=== PATIENT | female | born 1945 | race Caucasian/White ===

== ENCOUNTER 2019-08-21 01:55 | Day surgery (SDC) | payer MEDICARE, SELFPAY ==
[2019-08-12 15:07] VITALS: BMI 20.8
[2019-08-21] MEDS: LACTATED RINGERS 1,000 ML 150 ML IV CONT (08:05)
[2019-08-21 08:15] VITALS: BP 136/41; PULSE 66; RESP 16; TEMP 36.8; O2SAT 99
--- NOTE | 2019-08-21 08:27 | WPDANESEPPF ---
Anes - Initial Pre Proc Eval Procedure: Operation Date: 08/21/19 09:00 Proposed Procedures p Esophagogastroduodenoscopy - Jesus Doherty MD Date/Time: 08/21/19 08:27 Surgeon: Jesus Doherty MD Pre Op Diagnosis: GERD Patient Data Age: 74 Gender: F Height: 1.63 m Weight: 55.5 kg Last Vital Signs Temp 36.8 C 08/21/19 08:15 Pulse 66 08/21/19 08:15 Resp 16 08/21/19 08:15 BP 136/41 L 08/21/19 08:15 Pulse Ox 99 08/21/19 08:15 Allergies Allergy/AdvReac Type Severity Reaction Status Date / Time Penicillins Allergy Unknown Unknown Verified 08/21/19 08:02 Home Medications Medication Instructions Recorded Confirmed Type simvastatin 40 mg tablet 40 mg PO DAILY #90 tablet 06/17/19 08/21/19 Rx alprazolam 0.5 mg tablet 0.5 mg PO TID PRN #90 tablet 07/08/19 08/21/19 Rx aspirin 81 mg PO DAILY 08/12/19 08/21/19 History cholecalciferol (vitamin D3) 4,000 unit PO DAILY 08/12/19 08/21/19 History [Vitamin D3] cyanocobalamin (vitamin B-12) 1,000 mcg PO DAILY 08/12/19 08/21/19 History [Vitamin B-12] levothyroxine [Synthroid] 50 mcg PO EVERY OTHER DAY 08/12/19 08/21/19 History levothyroxine [Synthroid] 75 mcg PO EVERY OTHER DAY 08/12/19 08/21/19 History magnesium oxide 200 mg PO DAILY 08/12/19 08/21/19 History omeprazole 40 mg PO DAILY 08/12/19 08/21/19 History sumatriptan succinate [Imitrex] 25 mg PO DAILY PRN 08/12/19 08/21/19 History denosumab [Prolia] 60 mg SUBCUT [id number] 08/21/19 08/21/19 History Patient hx anesthesia problems: none Family hx anesthesia problems: none PMFSH Past Medical History Medical History (Updated 08/21/19 @ 08:28 by Mike Sun MD) Anxiety Hypercholesterolemia Migraine Surgical History Surgical History (Updated 08/21/19 @ 08:28 by Mike Sun MD) H/O thyroidectomy Family History Family History (System 08/10/19 @ 15:43 by Valeria Vazquez) Father Family history of cardiovascular disease Family history of heart disease in male family member before age 55 Grandparent Carcinoma of colon Other Diabetes mellitus Social History Social History (System 08/10/19 @ 15:43 by Valeria Vazquez) Smoking status: Never smoker Second hand tobacco smoke exposure: No Alcohol intake: never Anes - Eval Final PreProcedure Day of Procedure 08/21/19 08:27 Patient weight: overweight Heart: regular rate and rhythm Lungs: clear to auscultation and normal air movement Airway: Mallampati scale class II Neurological: alert and oriented Last oral intake: >/= 8 hours ASA classification: II Emergent: no Anesthetic plan: proceed Anesthesia type and monitoring: general GIVS Informed Consent: The patient's anesthetic plan and its attendant risks and benefits were discussed with the patient/family/POA. Questions were solicited and answers provided to the satisfaction of the patient/family/POA.
--- NOTE | 2019-08-21 08:54 | WPDGICN ---
Assessment and Plan Additional Plan This is a 74-year-old white female patient seen in evaluation at the request of Dr. Tukr. Patient has a long history of acid reflux. Symptoms seem to worsen with stress. She developed substernal burning. She also notes throat burning high in her chest. This worsens on eating fatty foods. She denies any difficulty swallowing. She denies any bleeding. Her weight has remained stable. She has been treated with omeprazole for many years. Recently dose increased to40mg p.o. daily. This has made no change in her symptoms. Patient had previous endoscopy 1 year ago in [place]. Colonoscopy was performed 1 year ago in was unremarkable. Family history is significant that her sister had colon polyps. Grandfather with colon cancer. Past medical history is significant for thyroidectomy. She has been treated for anxiety. Current medications included present mcintosh. Aspirin. Prolia. Levothyroxine. Magnesium oxide. Omeprazole. Simvastatin. And sumatriptan. She has no stated drug allergies. Physical exam reveals her to be alert. Vital signs stable. HEENT exam unremarkable. Lungs are clear to auscultation and percussion. Heart is without murmur or extra sounds. Abdominal exam bowel sounds are present soft nontender with no organomegaly. Digital external rectal exam normal. Impression 1. Substernal burning pain. 2. GE reflux disease. This appears poorly responsive to current dose of medications. 3. Family history of colon cancer and polyps. Plan is to continue omeprazole 40 mg p.o. daily. Anti-reflux measures are encouraged. An EGD to assess poor response to medications is planned. Given her family history of colon polyps and cancer follow-up colonoscopy every 5 years is advised. GI Consult Note Consult date/time: 08/21/19 08:54 HPI: Diana Raza is a 74 year old female [facility] Past Medical History Medical History (Updated 08/21/19 @ 08:28 by Mike Sun MD) Anxiety Hypercholesterolemia Migraine Surgical History Surgical History (Updated 08/21/19 @ 08:28 by Mike Sun MD) H/O thyroidectomy Family History Family History (System 08/10/19 @ 15:43 by Valeria Vazquez) Father Family history of cardiovascular disease Family history of heart disease in male family member before age 55 Grandparent Carcinoma of colon Other Diabetes mellitus Social History Social History (System 08/10/19 @ 15:43 by Valeria Vazquez) Smoking status: Never smoker Second hand tobacco smoke exposure: No Alcohol intake: never Meds Home Medications and Allergies Home Medications Medication Instructions Recorded Confirmed Type simvastatin 40 mg tablet 40 mg PO DAILY #90 tablet 06/17/19 08/21/19 Rx alprazolam 0.5 mg tablet 0.5 mg PO TID PRN #90 tablet 07/08/19 08/21/19 Rx aspirin 81 mg PO DAILY 08/12/19 08/21/19 History cholecalciferol (vitamin D3) 4,000 unit PO DAILY 08/12/19 08/21/19 History [Vitamin D3] cyanocobalamin (vitamin B-12) 1,000 mcg PO DAILY 08/12/19 08/21/19 History [Vitamin B-12] levothyroxine [Synthroid] 50 mcg PO EVERY OTHER DAY 08/12/19 08/21/19 History levothyroxine [Synthroid] 75 mcg PO EVERY OTHER DAY 08/12/19 08/21/19 History magnesium oxide 200 mg PO DAILY 08/12/19 08/21/19 History omeprazole 40 mg PO DAILY 08/12/19 08/21/19 History sumatriptan succinate [Imitrex] 25 mg PO DAILY PRN 08/12/19 08/21/19 History denosumab [Prolia] 60 mg SUBCUT [id number] 08/21/19 08/21/19 History Allergies Allergy/AdvReac Type Severity Reaction Status Date / Time Penicillins Allergy Unknown Unknown Verified 08/21/19 08:02 Vital Signs Vital Signs - 24 hr 08/21/19 08:15 Temperature 36.8 C Pulse Rate 66 Respiratory Rate 16 Blood Pressure 136/41 L Pulse Oximetry 99
[2019-08-21 09:05] VITALS: BP 112/47; PULSE 68; RESP 18; O2SAT 99
[2019-08-21 09:15] VITALS: BP 104/52; PULSE 74; RESP 20; O2SAT 100
[2019-08-21 09:25] VITALS: BP 108/47; PULSE 61; RESP 17; O2SAT 100
[2019-08-21 09:39] VITALS: BP 117/49; PULSE 57; RESP 22; O2SAT 100
== END 2019-08-21 09:50 | disposition home or self-care (01) ==
PROVIDERS: PCP Internal Medicine; Visit Provider Internal Medicine Gastroenterology
PROC: 0DJ08ZZ Inspection of Upper Intestinal Tract, Via Natural or Artificial Opening Endoscopic (ICD-10-PCS; CPT 43235; principal; 2019-08-21 09:00)
DX: K21.9 Gastro-esophageal reflux disease without esophagitis (principal); E78.00 Pure hypercholesterolemia, unspecified; F41.9 Anxiety disorder, unspecified; E89.0 Postprocedural hypothyroidism; Z79.82 Long term (current) use of aspirin
CPT/HCPCS: 43239; J2001; J2704; J7120

== ENCOUNTER 2020-01-13 08:34 | Outpatient (CLI) | payer MEDICARE, SELFPAY ==
[2020-01-13 09:14] LABS: Blood Urea Nitrogen 12 mg/dL (7-17); Calcium 8.9 mg/dL (8.4-10.2); Carbon Dioxide 30 mmol/L (22-30); Chloride 99 mmol/L (98-107); Cholesterol 172 mg/dL (0-200); Estimated Glomerular Filt Rate > 60; Glucose 98 mg/dL (65-105); HDL Direct 64 mg/dL; Potassium 3.9 mmol/L (3.4-5.0); Sodium 133 mmol/L (137-145); Triglycerides 98 mg/dL (<150)
[2020-01-13 09:25] LABS: LDL Cholesterol Direct 76 mg/dL
[2020-01-13 09:46] LABS: Free T4 Free Thyroxine 1.14 ng/mL (0.78-2.19)
== END 2020-01-13 08:35 | disposition home or self-care (01) ==
PROVIDERS: PCP Internal Medicine; Visit Provider Internal Medicine
DX: E03.9 Hypothyroidism, unspecified (principal); E78.2 Mixed hyperlipidemia; Z79.899 Other long term (current) drug therapy
CPT/HCPCS: 36415; 80048; 80061; 84439; 84443

== ENCOUNTER 2020-05-04 08:08 | Outpatient (CLI) | payer MEDICARE, SELFPAY ==
[2020-05-04 08:27] LABS: Basophils Percent Auto 0.7 % (0.2-1.2); Eosinophils Absolute Auto 0.2 K/mm3 (0-0.3); Eosinophils Percent Auto 3.6 % (0-4.4); Hematocrit 34.8 % (37.0-47.0); Hemoglobin 12.2 g/dL (12.0-15.0); Lymphocytes Absolute Auto 0.73 K/mm3 (0.9-3.2); Lymphocytes Percent Auto 17.7 % (18.3-44.2); Mean Corpuscular HGB Conc 35.1 g/dl (32-36); Mean Corpuscular Hemoglobin 30.3 pg (26-34); Mean Corpuscular Volume 86.6 fl (80-100); Mean Platelet Volume 10.2 fl (7.4-10.4); Monocytes Absolute Auto 0.4 K/mm3 (0.1-0.6); Monocytes Percent Auto 9.2 % (2.6-8.5); Neutrophils Absolute Auto 2.8 K/mm3 (1.3-6.7); Neutrophils Percent Auto 68.8 % (45.5-73.1); Platelet Count Result 147 k/mm3 (150-375); Red Blood Count 4.02 M/mm3 (4.2-5.4); Red Cell Distribution Width 12.2 % (11.5-14.5); White Blood Count 4.1 K/mm3 (4.5-10.0)
[2020-05-04 08:38] LABS: Hemoglobin A1C 5.1 % (<5.7)
[2020-05-04 08:39] LABS: Cholesterol 170 mg/dL (0-200); HDL Direct 65 mg/dL; Magnesium 2.1 mg/dL (1.6-2.3); Triglycerides 99 mg/dL (<150)
[2020-05-04 08:50] LABS: LDL Cholesterol Direct 70 mg/dL
[2020-05-04 09:20] LABS: Free T4 Free Thyroxine 1.11 ng/mL (0.78-2.19)
== END 2020-05-04 08:09 | disposition home or self-care (01) ==
PROVIDERS: PCP Internal Medicine; Visit Provider Internal Medicine
DX: Z79.899 Other long term (current) drug therapy (principal); E03.9 Hypothyroidism, unspecified; E78.00 Pure hypercholesterolemia, unspecified; R79.9 Abnormal finding of blood chemistry, unspecified
CPT/HCPCS: 36415; 80061; 83036; 83090; 83735; 84439; 84443; 85025

== ENCOUNTER 2020-06-28 14:43 | Outpatient (CLI) | payer MEDICARE, SELFPAY ==
--- NOTE | ~2020-06-28 | CT_ITS ---
EXAMINATION: CT chest w con DATE: 06/28/2020 15:49 INDICATION: Hemoptysis TECHNIQUE: Computed tomography (CT) of the chest was performed with 75 cc Omnipaque 350 intravenous c ontrast. Automated exposure control and iterative reconstruction technique were employed. Exam dose: 132.20 mGy-cm total exam DLP. COMPARISON: 08/13/2018 2 view chest 05/30/2018 CT chest with IV contrast material FINDINGS: There is mild bilateral apical scarring. There is mild to moderate emphysematous change of the lungs. There is mild discoid atelectasis or sca rring of the middle lobe, lingula and both lower lobes. No pulmonary infiltrate or consolidation. No suspicious pulmonary mass lesion is identified. Normal heart size. No pericardial effusion. No thoracic aortic aneurysm or dissection. No hilar or mediastinal mass lesion or lymphadenopathy. Small sliding hiatal hernia. Normal morphology of the adrenal glands. No suspicious osteolytic or osteoblastic lesions are noted. IMPRESSION: Moderate moderate emphysematous change of the lungs Mild discoid atelectasis or scarring of middle lobe, lingula and both lower lobes Reviewed, dictated and finalized at [facility]. Reviewed, dictated and finalized at location [facility]. LIEUTENANT IMPRESSION: Moderate moderate emphysematous change of the lungs Mild discoid atelectasis or scarring of middle lobe, lingula and both lower lob es
[2020-06-28 15:44] LABS: Estimated Glomerular Filt Rate > 60
== END 2020-06-28 14:44 | disposition home or self-care (01) ==
LOC: ANHIMG 14:45
PROVIDERS: PCP Internal Medicine; Visit Provider Internal Medicine
DX: R04.2 Hemoptysis (principal); K44.9 Diaphragmatic hernia without obstruction or gangrene
CPT/HCPCS: 71260; Q9967

== ENCOUNTER 2020-09-05 11:16 | Outpatient (CLI) | payer MEDICARE, SELFPAY ==
[2020-09-05 11:46] LABS: Basophils Percent Auto 0.9 % (0.2-1.2); Eosinophils Absolute Auto 0.2 K/mm3 (0-0.3); Eosinophils Percent Auto 4.7 % (0-4.4); Hematocrit 38.7 % (37.0-47.0); Hemoglobin 13.2 g/dL (12.0-15.0); Immature Granulocyte Absolute 0.01 K/mm3 (0.00-0.031); Immature Granulocyte Percent A 0.3 % (0-0.5); Lymphocytes Absolute Auto 0.99 K/mm3 (0.9-3.2); Lymphocytes Percent Auto 29.1 % (18.3-44.2); Mean Corpuscular HGB Conc 34.1 g/dl (32-36); Mean Corpuscular Hemoglobin 29.7 pg (26-34); Mean Corpuscular Volume 87.2 fl (80-100); Mean Platelet Volume 10.6 fl (7.4-10.4); Monocytes Absolute Auto 0.3 K/mm3 (0.1-0.6); Monocytes Percent Auto 8.8 % (2.6-8.5); Neutrophils Absolute Auto 1.9 K/mm3 (1.3-6.7); Neutrophils Percent Auto 56.2 % (45.5-73.1); Platelet Count Result 167 k/mm3 (150-375); Red Blood Count 4.44 M/mm3 (4.2-5.4); Red Cell Distribution Width 12.9 % (11.5-14.5); White Blood Count 3.4 K/mm3 (4.5-10.0)
[2020-09-05 11:59] LABS: Alanine Aminotransferase 21 U/L (4-35); Albumin Level 4.5 g/dL (3.5-5.1); Alkaline Phosphatase 47 U/L (38-126); Anion Gap 6 mmol/L (8-16); Aspartate Amino Transferase 33 U/L (14-36); Bilirubin,Total 0.6 mg/dL (0.2-1.3); Blood Urea Nitrogen 13 mg/dL (7-17); Calcium 9.3 mg/dL (8.4-10.2); Carbon Dioxide 32 mmol/L (22-30); Chloride 100 mmol/L (98-107); Cholesterol 179 mg/dL (0-200); Estimated Glomerular Filt Rate > 60; Glucose 100 mg/dL (65-105); HDL Direct 77 mg/dL; Potassium 4.3 mmol/L (3.4-5.0); Sodium 138 mmol/L (137-145); Triglycerides 115 mg/dL (<150)
[2020-09-05 12:10] LABS: LDL Cholesterol Direct 69 mg/dL
[2020-09-05 12:36] LABS: Free T4 Free Thyroxine 1.23 ng/mL (0.78-2.19)
[2020-09-07 13:58] LABS: GGT 25 U/L (3-65)
== END 2020-09-05 11:17 | disposition home or self-care (01) ==
LOC: ANHLAB 11:19
PROVIDERS: PCP Internal Medicine; Visit Provider Internal Medicine
DX: E03.9 Hypothyroidism, unspecified (principal); Z79.899 Other long term (current) drug therapy; E78.00 Pure hypercholesterolemia, unspecified; R79.89 Other specified abnormal findings of blood chemistry
CPT/HCPCS: 36415; 80053; 80061; 82977; 84439; 84443; 85025

== ENCOUNTER 2021-01-04 12:50 | Outpatient (CLI) | payer MEDICARE, SELFPAY ==
[2021-01-06 22:39] LABS: Lyme Disease Ab (IgM), Blot Negative (Negative); Lyme Disease Ab(IgG), Blot Negative (Negative)
== END 2021-01-04 12:51 | disposition home or self-care (01) ==
PROVIDERS: PCP Internal Medicine; Visit Provider Internal Medicine
DX: S30.861A Insect bite (nonvenomous) of abdominal wall, initial encounter (principal)
CPT/HCPCS: 36415; 86617

== ENCOUNTER 2021-03-01 10:46 | Outpatient (CLI) | payer MEDICARE, SELFPAY ==
[2021-03-04 15:43] LABS: Lyme Disease Ab (IgM), Blot Negative (Negative); Lyme Disease Ab(IgG), Blot Negative (Negative)
== END 2021-03-01 10:47 | disposition home or self-care (01) ==
LOC: ANHLAB 11:01
PROVIDERS: PCP Internal Medicine; Visit Provider Internal Medicine
DX: S30.861A Insect bite (nonvenomous) of abdominal wall, initial encounter (principal); W57.XXXA Bitten or stung by nonvenomous insect and other nonvenomous arthropods, initial encounter
CPT/HCPCS: 36415; 86617

== ENCOUNTER 2021-04-10 16:12 | Outpatient (CLI) | payer MEDICARE, SELFPAY ==
[2021-04-10 16:50] LABS: Eosinophils Absolute Auto 0.1 K/mm3 (0-0.3); Eosinophils Percent Auto 2.2 % (0-4.4); Hematocrit 34.4 % (37.0-47.0); Hemoglobin 11.8 g/dL (12.0-15.0); Immature Granulocyte Absolute 0.01 K/mm3 (0.00-0.031); Immature Granulocyte Percent A 0.2 % (0-0.5); Lymphocytes Absolute Auto 1.48 K/mm3 (0.9-3.2); Lymphocytes Percent Auto 35.5 % (18.3-44.2); Mean Corpuscular HGB Conc 34.3 g/dl (32-36); Mean Corpuscular Hemoglobin 30.5 pg (26-34); Mean Corpuscular Volume 88.9 fl (80-100); Mean Platelet Volume 10.7 fl (7.4-10.4); Monocytes Absolute Auto 0.4 K/mm3 (0.1-0.6); Monocytes Percent Auto 9.6 % (2.6-8.5); Neutrophils Absolute Auto 2.2 K/mm3 (1.3-6.7); Neutrophils Percent Auto 51.5 % (45.5-73.1); Platelet Count Result 159 k/mm3 (150-375); Red Blood Count 3.87 M/mm3 (4.2-5.4); Red Cell Distribution Width 12.9 % (11.5-14.5); White Blood Count 4.2 K/mm3 (4.5-10.0)
[2021-04-10 17:10] LABS: Alanine Aminotransferase 16 U/L (4-35); Albumin Level 4.1 g/dL (3.5-5.1); Alkaline Phosphatase 45 U/L (38-126); Anion Gap 8 mmol/L (8-16); Aspartate Amino Transferase 27 U/L (14-36); Bilirubin,Total 0.5 mg/dL (0.2-1.3); Blood Urea Nitrogen 14 mg/dL (7-17); Calcium 9.1 mg/dL (8.4-10.2); Carbon Dioxide 27 mmol/L (22-30); Chloride 99 mmol/L (98-107); Cholesterol 159 mg/dL (0-200); Estimated Glomerular Filt Rate > 60; Glucose 93 mg/dL (65-110); HDL Direct 64 mg/dL; Potassium 4.7 mmol/L (3.4-5.0); Sodium 134 mmol/L (137-145); Triglycerides 144 mg/dL (<150)
[2021-04-10 17:20] LABS: LDL Cholesterol Direct 54 mg/dL
[2021-04-10 17:39] LABS: Thyroid Stimulating Hormone 0.477 uIU/mL (0.465-4.680)
[2021-04-10 18:07] LABS: Free T4 Free Thyroxine 1.49 ng/mL (0.78-2.19)
== END 2021-04-10 16:13 | disposition home or self-care (01) ==
LOC: ANHLAB 16:14
PROVIDERS: PCP Internal Medicine; Visit Provider Internal Medicine
DX: E03.9 Hypothyroidism, unspecified (principal); Z51.81 Encounter for therapeutic drug level monitoring; Z79.899 Other long term (current) drug therapy
CPT/HCPCS: 36415; 80053; 80061; 84439; 84443; 85025

== ENCOUNTER 2021-07-11 15:12 | Outpatient (CLI) | payer MEDICARE, SELFPAY ==
--- NOTE | ~2021-07-11 | XR_ITS ---
XR shoulder LT min 2V 07/11/2021 15:46 Indication: Left shoulder pain Procedure: 4 views left shoulder Comparison: No prior studies for comparison. Findings: No acute fracture or traumatic malalignment. 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 Osteopenia. Surrounding soft tissues are unremarkable. No foreign bodies. Impression: 1: Mild polyarticular osteoarthritis. Reviewed, dictated and finalized at location [facility]. [employer]UE FIELD AGENT Impression: 1: Mild polyarticular osteoarthritis.
== END 2021-07-11 15:13 | disposition home or self-care (01) ==
LOC: ANHIMG 15:21
PROVIDERS: PCP Internal Medicine; Visit Provider Internal Medicine
DX: M19.012 Primary osteoarthritis, left shoulder (principal)
CPT/HCPCS: 73030

== ENCOUNTER 2021-08-17 10:23 | Outpatient (CLI) | payer MEDICARE, SELFPAY ==
[2021-08-17 10:45] LABS: Basophils Percent Auto 1.3 % (0.2-1.2); Eosinophils Absolute Auto 0.1 K/mm3 (0-0.3); Eosinophils Percent Auto 3.6 % (0-4.4); Hematocrit 37.2 % (37.0-47.0); Hemoglobin 12.4 g/dL (12.0-15.0); Lymphocytes Absolute Auto 1.13 K/mm3 (0.9-3.2); Lymphocytes Percent Auto 36.9 % (18.3-44.2); Mean Corpuscular HGB Conc 33.3 g/dl (32-36); Mean Corpuscular Hemoglobin 29.8 pg (26-34); Mean Corpuscular Volume 89.4 fl (80-100); Mean Platelet Volume 9.9 fl (7.4-10.4); Monocytes Absolute Auto 0.4 K/mm3 (0.1-0.6); Monocytes Percent Auto 12.1 % (2.6-8.5); Neutrophils Absolute Auto 1.4 K/mm3 (1.3-6.7); Neutrophils Percent Auto 46.1 % (45.5-73.1); Platelet Count Result 163 k/mm3 (150-375); Red Blood Count 4.16 M/mm3 (4.2-5.4); White Blood Count 3.1 K/mm3 (4.5-10.0)
[2021-08-17 11:04] LABS: Alanine Aminotransferase 15 U/L (4-35); Albumin Level 4.3 g/dL (3.5-5.1); Alkaline Phosphatase 43 U/L (38-126); Anion Gap 6 mmol/L (8-16); Aspartate Amino Transferase 25 U/L (14-36); Bilirubin,Total 0.8 mg/dL (0.2-1.3); Blood Urea Nitrogen 16 mg/dL (7-17); Carbon Dioxide 31 mmol/L (22-30); Chloride 97 mmol/L (98-107); Cholesterol 182 mg/dL (0-200); Estimated Glomerular Filt Rate > 60; Glucose 98 mg/dL (65-110); HDL Direct 66 mg/dL; Hemoglobin A1C 5.2 % (<5.7); Potassium 4.3 mmol/L (3.4-5.0); Sodium 134 mmol/L (137-145); Triglycerides 102 mg/dL (<150)
[2021-08-17 11:15] LABS: LDL Cholesterol Direct 77 mg/dL
[2021-08-17 11:48] LABS: Free T4 Free Thyroxine 1.38 ng/mL (0.78-2.19); Vitamin D 25 Hydroxy 80.2 ng/mL
[2021-08-17 12:47] LABS: Thyroid Stimulating Hormone 0.533 uIU/mL (0.465-4.680)
== END 2021-08-17 10:24 | disposition home or self-care (01) ==
PROVIDERS: PCP Internal Medicine; Visit Provider Internal Medicine
DX: E78.00 Pure hypercholesterolemia, unspecified (principal); Z79.899 Other long term (current) drug therapy; E55.9 Vitamin D deficiency, unspecified; E03.9 Hypothyroidism, unspecified
CPT/HCPCS: 36415; 80053; 80061; 82306; 83036; 84439; 84443; 85025

== ENCOUNTER 2021-08-21 14:32 | Outpatient (CLI) | payer MEDICARE, SELFPAY ==
[2021-08-21 15:13] LABS: Basophils Absolute Auto 0.1 K/mm3 (0.0-0.1); Basophils Percent Auto 1.3 % (0.2-1.2); Eosinophils Absolute Auto 0.1 K/mm3 (0-0.3); Eosinophils Percent Auto 2.8 % (0-4.4); Hemoglobin 12.6 g/dL (12.0-15.0); Immature Granulocyte Absolute 0.01 K/mm3 (0.00-0.031); Immature Granulocyte Percent A 0.3 % (0-0.5); Lymphocytes Absolute Auto 1.49 K/mm3 (0.9-3.2); Lymphocytes Percent Auto 38.6 % (18.3-44.2); Mean Corpuscular HGB Conc 34.1 g/dl (32-36); Mean Corpuscular Hemoglobin 30.4 pg (26-34); Mean Corpuscular Volume 89.4 fl (80-100); Mean Platelet Volume 10.2 fl (7.4-10.4); Monocytes Absolute Auto 0.5 K/mm3 (0.1-0.6); Monocytes Percent Auto 11.9 % (2.6-8.5); Neutrophils Absolute Auto 1.7 K/mm3 (1.3-6.7); Neutrophils Percent Auto 45.1 % (45.5-73.1); Platelet Count Result 173 k/mm3 (150-375); Red Blood Count 4.14 M/mm3 (4.2-5.4); Red Cell Distribution Width 13.1 % (11.5-14.5); White Blood Count 3.9 K/mm3 (4.5-10.0)
== END 2021-08-21 14:33 | disposition home or self-care (01) ==
PROVIDERS: PCP Internal Medicine; Visit Provider Internal Medicine
DX: D72.819 Decreased white blood cell count, unspecified (principal)
CPT/HCPCS: 36415; 85025

== ENCOUNTER 2021-08-31 14:05 | Outpatient (CLI) | payer MEDICARE, SELFPAY | END 2021-08-31 14:06 | disposition home or self-care (01) | PROVIDERS: PCP Internal Medicine; Visit Provider Internal Medicine | DX: R05.9 Cough, unspecified (principal); J34.89 Other specified disorders of nose and nasal sinuses; J30.9 Allergic rhinitis, unspecified | CPT/HCPCS: 36415; 82785; 86003 ==

== ENCOUNTER 2021-09-08 13:17 | Outpatient (CLI) | payer MEDICARE, SELFPAY ==
--- NOTE | ~2021-09-08 | CT_ITS ---
EXAMINATION: CT chest high resolution wo sc DATE: 09/08/2021 13:35 INDICATION: Hemoptysis. Chronic bronchitis. Cough. TECHNIQUE: Computed tomography (CT) of the chest was performed without intravenous contrast. The dose -length product was 130.20 mGy-cm. Automated exposure control and iterative reconstruction technique were employed. COMPARISON: CT dated 06/28/2020 FINDINGS: No thoracic lymphadenopathy. There is mild atherosclerosis. Heart size normal. No significa nt pleural or pericardial effusion. The upper abdomen is unremarkable. Mild emphysema. There are a fe w small scattered pulmonary nodules measuring 2 mm or less predominantly in the upper lobes. No endob ronchial lesions. No focal airspace consolidation. No pneumothorax. Mild accentuation of thoracic kyp hosis. No acute osseous abnormality. There is apical pleural thickening/scarring. IMPRESSION: 1. Mild chronic atelectasis/scarring right middle lobe. 2: Few scattered pulmonary nodules measuring 2 mm or less, likely benign. 3: Mild emphysema. Reviewed, dictated and finalized at location [facility]. GENCY ROOM ORDERLY
== END 2021-09-08 13:18 | disposition home or self-care (01) ==
LOC: ANHIMG 13:21
PROVIDERS: PCP Internal Medicine; Visit Provider Internal Medicine
DX: J42 Unspecified chronic bronchitis (principal); R05.9 Cough, unspecified; R91.8 Other nonspecific abnormal finding of lung field; J43.9 Emphysema, unspecified
CPT/HCPCS: 71250

== ENCOUNTER 2021-09-20 13:19 | Outpatient (CLI) | payer MEDICARE, SELFPAY ==
--- NOTE | 2021-09-21 13:17 | WPDPFTINT ---
PFT Procedure Performed PFT Procedure Performed Spirometry with Pre/Post Bronchodilator Plethysmography (Lung Vol) Diffusing Cap (DLCO) Flow Vol Loop PFT Interpretation Lung volumes were measured with the body plethysmography method. Lung volumes are unremarkable. Spirometry showed normal expiratory flow rates and a normal FEV1 to FVC ratio 71%. Following administration of a bronchodilator there was no increase in expiratory flow rates. Lung diffusion capacity is within the normal range. The flow volume loop is unremarkable. Impression: Spirometry, lung volumes, and lung diffusion capacity all within the normal range.
== END 2021-09-20 13:20 | disposition home or self-care (01) ==
LOC: ANHPFT 13:21
PROVIDERS: PCP Internal Medicine; Visit Provider Internal Medicine
DX: J42 Unspecified chronic bronchitis (principal)
CPT/HCPCS: 94060; 94726; 94729

== ENCOUNTER 2022-04-24 08:13 | Outpatient (CLI) | payer MEDICARE, SELFPAY ==
[2022-04-24 09:04] LABS: Basophils Percent Auto 0.8 % (0.2-1.2); Eosinophils Absolute Auto 0.2 K/mm3 (0-0.3); Hematocrit 34.9 % (37.0-47.0); Immature Granulocyte Absolute 0.01 K/mm3 (0.00-0.031); Immature Granulocyte Percent A 0.3 % (0-0.5); Lymphocytes Absolute Auto 1.59 K/mm3 (0.9-3.2); Lymphocytes Percent Auto 44.5 % (18.3-44.2); Mean Corpuscular HGB Conc 34.4 g/dl (32-36); Mean Corpuscular Hemoglobin 30.8 pg (26-34); Mean Corpuscular Volume 89.7 fl (80-100); Mean Platelet Volume 10.1 fl (7.4-10.4); Monocytes Absolute Auto 0.5 K/mm3 (0.1-0.6); Monocytes Percent Auto 12.9 % (2.6-8.5); Neutrophils Absolute Auto 1.3 K/mm3 (1.3-6.7); Neutrophils Percent Auto 36.5 % (45.5-73.1); Platelet Count Result 159 k/mm3 (150-375); Red Blood Count 3.89 M/mm3 (4.2-5.4); Red Cell Distribution Width 12.5 % (11.5-14.5); White Blood Count 3.6 K/mm3 (4.5-10.0)
[2022-04-24 09:22] LABS: Anion Gap 9 mmol/L (8-16); Blood Urea Nitrogen 11 mg/dL (7-17); Calcium 8.9 mg/dL (8.4-10.2); Carbon Dioxide 29 mmol/L (22-30); Chloride 94 mmol/L (98-107); Cholesterol 163 mg/dL (0-200); Estimated Glomerular Filt Rate > 60; Glucose 96 mg/dL (65-110); HDL Direct 53 mg/dL; Potassium 4.1 mmol/L (3.4-5.0); Sodium 132 mmol/L (137-145); Triglycerides 109 mg/dL (<150)
[2022-04-24 09:32] LABS: LDL Cholesterol Direct 68 mg/dL
[2022-04-24 10:20] LABS: Vitamin D 25 Hydroxy 79.3 ng/mL
[2022-04-24 10:53] LABS: Appearance Urine Clear (Clear); Bilirubin Urine Negative (Negative); Blood Urine Trace-lysed (Negative); Color Urine Yellow (Yellow); Glucose Urine UA Negative (Negative); Ketones Urine Negative (Negative); Leukocyte Esterase Ur 1+ LEU/UL (Negative); Nitrate Urine Negative (Negative); Protein Urine Negative (Negative); Urobilinogen Urine 0.2 mg/dL (<2.0); pH Urine 5.5 (5.0-9.0)
[2022-04-24 11:05] LABS: RBC Urine 0-2 /hpf (0-2); Squamous Epithelial Cell Urine Few /hpf (Few)
[2022-04-24 11:07] LABS: Add Urine Microscopic? YES
[2022-04-24 12:34] LABS: Hemoglobin A1C 5.1 % (<5.7)
== END 2022-04-24 08:14 | disposition home or self-care (01) ==
LOC: ANHLAB 08:16
PROVIDERS: PCP Internal Medicine; Visit Provider Internal Medicine
DX: E55.9 Vitamin D deficiency, unspecified (principal); Z13.1 Encounter for screening for diabetes mellitus; Z79.899 Other long term (current) drug therapy; E78.00 Pure hypercholesterolemia, unspecified; D70.9 Neutropenia, unspecified
CPT/HCPCS: 36415; 80048; 80061; 81001; 82306; 83036; 85025

== ENCOUNTER 2022-09-21 08:39 | Outpatient (CLI) | payer MEDICARE, SELFPAY ==
[2022-09-21 09:22] LABS: Basophils Percent Auto 0.9 % (0.2-1.2); Eosinophils Absolute Auto 0.1 K/mm3 (0-0.3); Eosinophils Percent Auto 2.6 % (0-4.4); Hematocrit 36.9 % (37.0-47.0); Hemoglobin 12.5 g/dL (12.0-15.0); Lymphocytes Absolute Auto 1.21 K/mm3 (0.9-3.2); Mean Corpuscular HGB Conc 33.9 g/dl (32-36); Mean Corpuscular Hemoglobin 29.9 pg (26-34); Mean Corpuscular Volume 88.3 fl (80-100); Mean Platelet Volume 10.2 fl (7.4-10.4); Monocytes Absolute Auto 0.4 K/mm3 (0.1-0.6); Monocytes Percent Auto 11.6 % (2.6-8.5); Neutrophils Absolute Auto 1.7 K/mm3 (1.3-6.7); Neutrophils Percent Auto 49.9 % (45.5-73.1); Platelet Count Result 171 k/mm3 (150-375); Red Blood Count 4.18 M/mm3 (4.2-5.4); Red Cell Distribution Width 12.8 % (11.5-14.5); White Blood Count 3.5 K/mm3 (4.5-10.0)
[2022-09-21 09:37] LABS: Alanine Aminotransferase 19 U/L (6-35); Albumin Level 4.2 g/dL (3.5-5.1); Alkaline Phosphatase 50 U/L (38-126); Anion Gap 4 mmol/L (8-16); Aspartate Amino Transferase 28 U/L (14-36); Bilirubin,Total 0.7 mg/dL (0.2-1.3); Blood Urea Nitrogen 13 mg/dL (7-17); Calcium 8.8 mg/dL (8.4-10.2); Carbon Dioxide 30 mmol/L (22-30); Chloride 93 mmol/L (98-107); Cholesterol 166 mg/dL (0-200); Estimated Glomerular Filt Rate > 60; Glucose 92 mg/dL (65-110); HDL Direct 65 mg/dL; Potassium 4.1 mmol/L (3.4-5.0); Sodium 127 mmol/L (137-145); Triglycerides 102 mg/dL (<150)
[2022-09-21 09:48] LABS: LDL Cholesterol Direct 69 mg/dL
[2022-09-21 10:05] LABS: Thyroid Stimulating Hormone 0.492 uIU/mL (0.465-4.680)
[2022-09-21 12:13] LABS: Hemoglobin A1C 5.3 % (<5.7)
== END 2022-09-21 08:40 | disposition home or self-care (01) ==
LOC: ANHLAB 08:41
PROVIDERS: PCP Internal Medicine; Visit Provider Internal Medicine
DX: E03.9 Hypothyroidism, unspecified (principal); Z79.899 Other long term (current) drug therapy; Z13.1 Encounter for screening for diabetes mellitus; E78.00 Pure hypercholesterolemia, unspecified
CPT/HCPCS: 36415; 80053; 80061; 83036; 84439; 84443; 85025

== ENCOUNTER 2022-10-02 14:42 | Outpatient (CLI) | payer MEDICARE, SELFPAY ==
--- NOTE | ~2022-10-02 | XR_ITS ---
XR sinus min 3V DATE: 10/02/2022 15:35 INDICATION: Chronic sinusitis TECHNIQUE: srinivasan Coello, lateral and submental vertical views COMPARISON: September 01, 2018 CT sinuses FINDINGS: There is leftward deviation of the nasal septum. The paranasal sinuses and mastoid air cell s appear normally developed and aerated. IMPRESSION: Leftward deviation of nasal septum Normally developed and aerated paranasal sinuses and mastoid air cells Reviewed, dictated and finalized at [facility].
== END 2022-10-02 14:43 | disposition home or self-care (01) ==
LOC: ANHIMG 14:48
PROVIDERS: PCP Internal Medicine; Visit Provider Internal Medicine
DX: J34.89 Other specified disorders of nose and nasal sinuses (principal); J32.9 Chronic sinusitis, unspecified; J34.2 Deviated nasal septum
CPT/HCPCS: 70220

== ENCOUNTER 2023-01-10 00:22 | Day surgery (SDC) | payer MEDICARE, SELFPAY ==
[2023-01-03 08:43] VITALS: BMI 22.2
[2023-01-10 08:04] VITALS: BP 121/44; PULSE 57; RESP 20; TEMP 36.4; O2SAT 100
[2023-01-10] MEDS: LACTATED RINGERS 1,000 ML 150 ML IV CONT (08:16)
--- NOTE | 2023-01-10 08:22 | PM.HPGS ---
History of Present Illness History of Present Illness Consent: Risks, benefits, and alternatives have been discussed and questions answered. Patient agrees to proceed with procedure. Chief complaint: globus Narrative: Diana Raza is a 77 year old female Presents for EGD. Patient feels as though there is a sensation of food stuck in her throat. She states this had will happen occasionally will sometimes last for several days. She had similar symptoms in 2019. At that time an EGD was unremarkable. Patient was given a trial of Elavil for presumed to globus phenomenon. She states she did not take it very long for fear of side effects. Patient has had recurrent sensation of a lump in her throat. She is able to swallow when this occurs. She denies any heartburn or concomitant sensations. Currently being treated with omeprazole this is failed to alleviate symptoms. Patient returns today for EGD at the request primary care service to exclude organic disease. Family history is noncontributory. Review of Systems Review of Systems: Review of systems noncontributory. [facility] Past Medical History Medical History (Updated 01/10/23 @ 08:24 by Jesus Doherty MD) Abnormal finding of blood chemistry Anxiety BMI 21.0-21.9, adult Chronic laryngitis Cryptic tonsil Discharge of right eye Elevated LFTs Encounter for Medicare annual wellness exam Encounter for routine adult health examination without abnormal findings Encounter for screening for cardiovascular disorders Epigastric pain Fatigue Hemoptysis History of stress test (~2020) Hx of atypical migraine Hypercholesterolemia Hyperlipidemia Hyponatremia Hypothyroidism Insect bite Left ear pain Left shoulder pain Leukopenia Migraine Muscle cramps Neutropenia On insulation blower drug therapy Osteopenia Osteoporosis Palpitations Raynauds disease Seasonal allergies Sinus drainage Sinusitis Swelling of right ring finger Tick bite of abdomen Surgical History Surgical History H/O thyroidectomy (~1989) H/O total hysterectomy (~1983) Family History Family History Father Family history of cardiovascular disease Family history of heart disease in male family member before age 55 Grandparent Carcinoma of colon Mother Osteoporosis Other Diabetes mellitus Social History Social History Smoking status: Never smoker Second hand tobacco smoke exposure: No Alcohol intake: never Substance use: never Substance use type: does not use Living arrangements: with family Spiritual care concerns: No Meds Home Medications and Allergies Home Medications Medication Instructions Recorded Confirmed Type aspirin 81 mg chewable tablet 81 mg PO DAILY 08/12/19 01/03/23 History cholecalciferol (vitamin D3) 100 4,000 unit PO DAILY 08/12/19 01/03/23 History mcg (4,000 unit) capsule (Vitamin D3) denosumab 60 mg/mL subcutaneous 60 mg subcut [id number] 08/21/19 01/03/23 History syringe (Prolia) sumatriptan succinate 50 mg tablet See Rx Instructions PO .COMPLEX 01/19/21 01/03/23 Rx PRN Migraine Headache #24 tabs metoprolol tartrate 25 mg tablet See Rx Instructions PO DAILY 11/27/21 01/03/23 History Synthroid 50 mcg tablet See Rx Instructions .Route 05/09/22 01/03/23 Rx (levothyroxine) .COMPLEX #45 tabs Synthroid 75 mcg tablet See Rx Instructions .Route 05/09/22 01/03/23 Rx (levothyroxine) .COMPLEX #45 tabs acyclovir 5 % topical ointment 1 applic topical 6XD PRN cold 07/18/22 01/03/23 Rx sores 7 days #5 grams omeprazole 20 mg capsule,delayed See Rx Instructions .Route 10/04/22 01/03/23 Rx release .COMPLEX #90 caps simvastatin 20 mg tablet 20 mg PO DAILY #90 tabs 11/08/22 01/03/23 Rx alprazolam 0.5 mg tablet 0.25 mg PO TID PRN anxiety #90 tabs 12/26/22 01/03/23 Rx A
--- NOTE | 2023-01-10 08:51 | WPDANESEPPF ---
Anes - Initial Pre Proc Eval Procedure: Operation Date: 01/10/23 09:00 Proposed Procedures p Esophagogastroduodenoscopy - Jesus Doherty MD Date/Time: 01/10/23 08:51 Surgeon: Jesus Doherty MD Pre Op Diagnosis: globus Patient Data Age: 77 Gender: F Height: 1.6 m Weight: 57.9 kg Last Vital Signs Temp 97.6 F 01/10/23 08:04 Pulse 57 L 01/10/23 08:04 Resp 20 01/10/23 08:04 BP 121/44 L 01/10/23 08:04 Pulse Ox 100 01/10/23 08:04 O2 Del Method Room Air 01/10/23 08:04 Allergies Allergy/AdvReac Type Severity Reaction Status Date / Time Penicillins Allergy Unknown Unknown Verified 01/10/23 08:01 Home Medications Medication Instructions Recorded Confirmed Type aspirin 81 mg chewable tablet 81 mg PO DAILY 08/12/19 01/03/23 History cholecalciferol (vitamin D3) 100 4,000 unit PO DAILY 08/12/19 01/03/23 History mcg (4,000 unit) capsule (Vitamin D3) denosumab 60 mg/mL subcutaneous 60 mg subcut [id number] 08/21/19 01/03/23 History syringe (Prolia) sumatriptan succinate 50 mg tablet See Rx Instructions PO .COMPLEX 01/19/21 01/03/23 Rx PRN Migraine Headache #24 tabs metoprolol tartrate 25 mg tablet See Rx Instructions PO DAILY 11/27/21 01/03/23 History Synthroid 50 mcg tablet See Rx Instructions .Route 05/09/22 01/03/23 Rx (levothyroxine) .COMPLEX #45 tabs Synthroid 75 mcg tablet See Rx Instructions .Route 05/09/22 01/03/23 Rx (levothyroxine) .COMPLEX #45 tabs acyclovir 5 % topical ointment 1 applic topical 6XD PRN cold 07/18/22 01/03/23 Rx sores 7 days #5 grams omeprazole 20 mg capsule,delayed See Rx Instructions .Route 10/04/22 01/03/23 Rx release .COMPLEX #90 caps simvastatin 20 mg tablet 20 mg PO DAILY #90 tabs 11/08/22 01/03/23 Rx alprazolam 0.5 mg tablet 0.25 mg PO TID PRN anxiety #90 tabs 12/26/22 01/03/23 Rx Patient hx anesthesia problems: none Family hx anesthesia problems: none Results Review: All pre-operative results and documents have been reviewed as part of the pre-operative evaluation. [facility] Past Medical History Medical History (Updated 01/10/23 @ 08:24 by Jesus Doherty MD) Abnormal finding of blood chemistry Anxiety BMI 21.0-21.9, adult Chronic laryngitis Cryptic tonsil Discharge of right eye Elevated LFTs Encounter for Medicare annual wellness exam Encounter for routine adult health examination without abnormal findings Encounter for screening for cardiovascular disorders Epigastric pain Fatigue Hemoptysis History of stress test (~2020) Hx of atypical migraine Hypercholesterolemia Hyperlipidemia Hyponatremia Hypothyroidism Insect bite Left ear pain Left shoulder pain Leukopenia Migraine Muscle cramps Neutropenia On community manager drug therapy Osteopenia Osteoporosis Palpitations Raynauds disease Seasonal allergies Sinus drainage Sinusitis Swelling of right ring finger Tick bite of abdomen Surgical History Surgical History H/O thyroidectomy (~1989) H/O total hysterectomy (~1983) Family History Family History Father Family history of cardiovascular disease Family history of heart disease in male family member before age 55 Grandparent Carcinoma of colon Mother Osteoporosis Other Diabetes mellitus Social History Social History Smoking status: Never smoker Second hand tobacco smoke exposure: No Alcohol intake: never Substance use: never Substance use type: does not use Living arrangements: with family Spiritual care concerns: No Anes - Eval Final PreProcedure Day of Procedure 01/10/23 08:51 Patient weight: normal Heart: regular rate and rhythm Lungs: clear to auscultation Airway: Mallampati scale class II Neurological: alert and oriented Last oral intake: >/= 8 hours ASA classification: III Emergent: no Anesthetic plan: p
[2023-01-10 09:10] VITALS: BP 108/56; PULSE 55; RESP 18; TEMP 36.4; O2SAT 100
[2023-01-10 09:20] VITALS: BP 112/56; PULSE 54; RESP 13; TEMP 36.4; O2SAT 100
[2023-01-10 09:30] VITALS: BP 109/60; PULSE 51; RESP 19; TEMP 36.4; O2SAT 100
== END 2023-01-10 09:36 | disposition home or self-care (01) ==
PROVIDERS: PCP Internal Medicine; Visit Provider Internal Medicine Gastroenterology
PROC: 0DJ08ZZ Inspection of Upper Intestinal Tract, Via Natural or Artificial Opening Endoscopic (ICD-10-PCS; CPT 43235; principal; 2023-01-10 09:00)
DX: K22.2 Esophageal obstruction (principal); I10 Essential (primary) hypertension; E78.00 Pure hypercholesterolemia, unspecified; E03.9 Hypothyroidism, unspecified; M81.0 Age-related osteoporosis without current pathological fracture; I73.00 Raynaud's syndrome without gangrene; F41.9 Anxiety disorder, unspecified; Z79.82 Long term (current) use of aspirin
CPT/HCPCS: 43450; 43235; J2704; J7120

== ENCOUNTER 2023-01-23 14:06 | Emergency (ER) | payer MEDICARE, SELFPAY ==
--- NOTE | ~2023-01-23 | CT_ITS ---
EXAMINATION: CT cervical spine wo con DATE: 01/23/2023 17:09 INDICATION: Neck pain TECHNIQUE: Computed tomography (CT) of the cervical spine was performed without intravenous contrast. Automated exposure control and iterative reconstruction technique were employed. Exam dose: 110.69 mGy-cm total exam DLP. COMPARISON: None FINDINGS: C1 and C2 are normally aligned and the odontoid process is intact. There is slight anterolisthesis at C3-4 and mild anterolisthesis at C4-5 and C5-6. Mild to moderate degenerative disc disease at C2-3, C4-5, C5-6, C6-7.. No fracture or dislocation or locked facet or prevertebral soft tissue swelling. Prominent degenerative changes of the apophyseal joints. IMPRESSION: Cervical spondylosis No fracture or dislocation or locked facet Reviewed, dictated and finalized at [facility]. Reviewed, dictated and finalized at location [facility].
--- NOTE | ~2023-01-23 | CT_ITS ---
EXAMINATION: CT brain wo con DATE: 01/23/2023 17:08 INDICATION: Head injury. Patient fell 5 days ago. Neck pain. TECHNIQUE: Computed tomography (CT) of the head was performed without intravenous contrast. The mA wa s adjusted according to patient size. Iterative reconstruction technique was employed. Exam dose: 68 1.00 mGy-cm total exam DLP. COMPARISON: None FINDINGS: No intracranial mass lesion or hemorrhage or cerebrovascular accident is detected. No midli ne shift or mass effect effect. Mild bilateral basal ganglia calcification. Prominent bilateral carotid siphon internal carotid artery calcifications. There is nonspecific dimin ished attenuation of the cerebral white matter, likely due to chronic small vessel ischemic changes. No subdural or epidural hematoma is detected. No fracture or bone destruction of the cranial vault. The mastoid air cells and included paranasal si nuses are normally developed and aerated. IMPRESSION: Cerebral atherosclerosis and chronic small vessel ischemic changes of cerebral white mat ter No acute intracranial finding or skull fracture Reviewed, dictated and finalized at Location A. Reviewed, dictated and finalized at location A. IMPRESSION: Cerebral atherosclerosis and chronic small vessel ischemic changes of cerebral white matter No acute intracranial finding or skull fracture
[2023-01-23 15:00] VITALS: BP 110/38; PULSE 56; RESP 18; TEMP 36.4; O2SAT 100
--- NOTE | 2023-01-23 16:55 | ED.GENADULT ---
HPI - General Adult General Chief complaint: Head Injury Stated complaint: head injury january 18/headache Time Seen by Provider: 01/23/23 16:36 History of Present Illness HPI narrative: 77-year-old female presented to the emergency department for evaluation after having a fall on Saturday. Patient states that she was leaving the movie theater tripped over a rink on the carpet and fell forward striking her knees and landed flat. Patient is unsure if she struck her head but states that she was dazed after the fall. Patient denies any loss of consciousness. Patient states over the course of the week after the fall she has had some increased lightheadedness and dizziness and does report some frontal headache. Patient does have a prior history of migraines but states this is different than her previous migraines. Related Data Home Medications Medication Instructions Recorded Confirmed aspirin 81 mg chewable tablet 81 mg PO DAILY 08/12/19 01/03/23 cholecalciferol (vitamin D3) 100 4,000 unit PO DAILY 08/12/19 01/03/23 mcg (4,000 unit) capsule (Vitamin D3) denosumab 60 mg/mL subcutaneous 60 mg subcut [id number] 08/21/19 01/03/23 syringe (Prolia) metoprolol tartrate 25 mg tablet See Rx Instructions PO DAILY 11/27/21 01/03/23 Allergies Allergy/AdvReac Type Severity Reaction Status Date / Time Penicillins Allergy Unknown Unknown Verified 01/23/23 14:07 Review of Systems Review of Systems: All systems reviewed & are unremarkable except as noted in HPI and below PMFSH Past Medical History Medical History (Updated 01/23/23 @ 17:59 by Chase Valenzuela MD) Abnormal finding of blood chemistry Anxiety BMI 21.0-21.9, adult Chronic laryngitis Cryptic tonsil Discharge of right eye Elevated LFTs Encounter for Medicare annual wellness exam Encounter for routine adult health examination without abnormal findings Encounter for screening for cardiovascular disorders Epigastric pain Fatigue Hemoptysis History of stress test (~2020) Hx of atypical migraine Hypercholesterolemia Hyperlipidemia Hyponatremia Hypothyroidism Insect bite Left ear pain Left shoulder pain Leukopenia Migraine Muscle cramps Neutropenia On senior care drug therapy Osteopenia Osteoporosis Palpitations Raynauds disease Seasonal allergies Sinus drainage Sinusitis Swelling of right ring finger Tick bite of abdomen Surgical History Surgical History H/O thyroidectomy (~1989) H/O total hysterectomy (~1983) Family History Family History Father Family history of cardiovascular disease Family history of heart disease in male family member before age 55 Grandparent Carcinoma of colon Mother Osteoporosis Other Diabetes mellitus Social History Social History Smoking status: Never smoker Second hand tobacco smoke exposure: No Alcohol intake: never Substance use: never Substance use type: does not use Living arrangements: with family Spiritual care concerns: No Exam Narrative: APPEARANCE: Well appearing, no pain, no distress, well-nourished. HEAD: normocephalic, atraumatic. EYES: PERRLA/EOMI, conjunctivae clear. NOSE: Normal no drainage EARS:TMS clear with good light reflex. THROAT: Pharynx clear, no exudate. NECK: Supple. No adenopathy, no masses. RESPIRATORY: Airway patent, respirations nonlabored. Clear to auscultation bilaterally, no rales, rhonchi, wheezing. CARDIOVASCULAR: Regular rate and rhythm without murmurs rubs or gallops. ABDOMINAL: Soft, nontender, nondistended, normal bowel sounds MUSCULOSKELETAL: Moves all extremities. Strength/ROM intact, No edema, No calf tenderness. NEURO: Alert. Cranial nerves II through XII intact. Grossly intact SKIN: Warm, dry. Normal Color Course Course Emergency Course: 77-year-old female presented ED for e
[2023-01-23 17:08] LABS: Basophils Percent Auto 0.8 % (0.2-1.2); Eosinophils Absolute Auto 0.1 K/mm3 (0-0.3); Eosinophils Percent Auto 1.7 % (0-4.4); Hematocrit 34.6 % (37.0-47.0); Hemoglobin 11.7 g/dL (12.0-15.0); Immature Granulocyte Absolute 0.01 K/mm3 (0.00-0.031); Immature Granulocyte Percent A 0.3 % (0-0.5); Lymphocytes Absolute Auto 1.26 K/mm3 (0.9-3.2); Lymphocytes Percent Auto 35.6 % (18.3-44.2); Mean Corpuscular HGB Conc 33.8 g/dl (32-36); Mean Corpuscular Hemoglobin 29.8 pg (26-34); Mean Corpuscular Volume 88.3 fl (80-100); Mean Platelet Volume 9.6 fl (7.4-10.4); Monocytes Absolute Auto 0.4 K/mm3 (0.1-0.6); Monocytes Percent Auto 10.5 % (2.6-8.5); Neutrophils Absolute Auto 1.8 K/mm3 (1.3-6.7); Neutrophils Percent Auto 51.1 % (45.5-73.1); Platelet Count Result 178 k/mm3 (150-375); Red Blood Count 3.92 M/mm3 (4.2-5.4); Red Cell Distribution Width 13.1 % (11.5-14.5); White Blood Count 3.5 K/mm3 (4.5-10.0)
[2023-01-23 17:16] LABS: INR 0.9; Prothrombin Time 12.7 Seconds (11.1-14.7)
[2023-01-23 17:17] LABS: Alanine Aminotransferase 19 U/L (6-35); Albumin Level 3.9 g/dL (3.5-5.1); Alkaline Phosphatase 40 U/L (38-126); Anion Gap 3 mmol/L (8-16); Aspartate Amino Transferase 28 U/L (14-36); Bilirubin,Total 0.6 mg/dL (0.2-1.3); Blood Urea Nitrogen 15 mg/dL (7-17); Calcium 8.7 mg/dL (8.4-10.2); Carbon Dioxide 34 mmol/L (22-30); Chloride 94 mmol/L (98-107); Estimated Glomerular Filt Rate > 60; Glucose 84 mg/dL (65-110); Partial Thromboplastin Time 27.4 SECONDS (22.3-36.8); Potassium 4.4 mmol/L (3.4-5.0); Sodium 131 mmol/L (137-145)
[2023-01-23 17:45] VITALS: BP 118/50; PULSE 56; RESP 14; O2SAT 100
[2023-01-23] MEDS: KETOROLAC 15 MG/ML VIAL (*BKC) IV PUSH (18:01)
== END 2023-01-23 18:22 | disposition home or self-care (01) ==
PROVIDERS: Emergency Provider Emergency Medicine; PCP Internal Medicine
DX: R51.9 Headache, unspecified (principal); E78.00 Pure hypercholesterolemia, unspecified; E89.0 Postprocedural hypothyroidism; I73.00 Raynaud's syndrome without gangrene; J37.0 Chronic laryngitis; M81.0 Age-related osteoporosis without current pathological fracture; M85.80 Other specified disorders of bone density and structure, unspecified site; Z90.710 Acquired absence of both cervix and uterus; Z79.82 Long term (current) use of aspirin; I67.2 Cerebral atherosclerosis; M47.812 Spondylosis without myelopathy or radiculopathy, cervical region
CPT/HCPCS: 36415; 70450; 72125; 80053; 85025; 85610; 85730; 96374; 99284; J1885

== ENCOUNTER 2023-02-06 09:10 | Outpatient (CLI) | payer MEDICARE, SELFPAY ==
--- NOTE | ~2023-02-06 | US_ITS ---
Limited Abdominal Sonogram: Real-time sonographic imaging of the right upper quadrant was performed. Clinical History: Fatty liver Findings: The liver appears normal with no evidence of mass lesion or bile duct dilatation. Main por mor vein demonstrates normal direction of flow. The gallbladder is well distended, and appears normal with no evidence of gallstone or wall thickening. The common bile duct measures 6 mm. The visualize d pancreas, aorta, and IVC are unremarkable. Impression: No significant abnormality seen. Reviewed, dictated and finalized at location . Impression: No significant abnormality seen.
== END 2023-02-06 09:11 | disposition home or self-care (01) ==
PROVIDERS: PCP Internal Medicine; Visit Provider Internal Medicine
DX: K76.0 Fatty (change of) liver, not elsewhere classified (principal); R79.89 Other specified abnormal findings of blood chemistry
CPT/HCPCS: 76705

== ENCOUNTER 2023-02-08 09:59 | Outpatient (CLI) | payer MEDICARE, SELFPAY ==
[2023-02-08 10:26] LABS: Basophils Percent Auto 1.2 % (0.2-1.2); Eosinophils Absolute Auto 0.1 K/mm3 (0-0.3); Eosinophils Percent Auto 1.5 % (0-4.4); Hematocrit 34.5 % (37.0-47.0); Hemoglobin 11.7 g/dL (12.0-15.0); Immature Granulocyte Absolute 0.01 K/mm3 (0.00-0.031); Immature Granulocyte Percent A 0.3 % (0-0.5); Lymphocytes Absolute Auto 1.46 K/mm3 (0.9-3.2); Lymphocytes Percent Auto 45.1 % (18.3-44.2); Mean Corpuscular HGB Conc 33.9 g/dl (32-36); Mean Corpuscular Hemoglobin 29.3 pg (26-34); Mean Corpuscular Volume 86.3 fl (80-100); Mean Platelet Volume 10.1 fl (7.4-10.4); Monocytes Absolute Auto 0.4 K/mm3 (0.1-0.6); Monocytes Percent Auto 12.3 % (2.6-8.5); Neutrophils Absolute Auto 1.3 K/mm3 (1.3-6.7); Neutrophils Percent Auto 39.6 % (45.5-73.1); Platelet Count Result 162 k/mm3 (150-375); White Blood Count 3.2 K/mm3 (4.5-10.0)
[2023-02-08 10:49] LABS: Alanine Aminotransferase 21 U/L (6-35); Albumin Level 4.1 g/dL (3.5-5.1); Alkaline Phosphatase 44 U/L (38-126); Anion Gap 7 mmol/L (8-16); Aspartate Amino Transferase 31 U/L (14-36); Bilirubin,Total 0.8 mg/dL (0.2-1.3); Blood Urea Nitrogen 12 mg/dL (7-17); Calcium 8.6 mg/dL (8.4-10.2); Carbon Dioxide 27 mmol/L (22-30); Chloride 98 mmol/L (98-107); Cholesterol 148 mg/dL (0-200); Estimated Glomerular Filt Rate > 60; Glucose 92 mg/dL (65-110); HDL Direct 58 mg/dL; Potassium 4.1 mmol/L (3.4-5.0); Sodium 132 mmol/L (137-145); Triglycerides 78 mg/dL (<150)
[2023-02-08 11:01] LABS: LDL Cholesterol Direct 58 mg/dL
[2023-02-08 11:01] LABS: Free T4 Free Thyroxine 1.97 ng/mL (0.78-2.19)
[2023-02-08 11:10] LABS: Thyroid Stimulating Hormone 0.409 uIU/mL (0.465-4.680)
== END 2023-02-08 10:00 | disposition home or self-care (01) ==
LOC: ANHLAB 10:00
PROVIDERS: PCP Internal Medicine; Visit Provider Internal Medicine
DX: E03.9 Hypothyroidism, unspecified (principal); Z79.899 Other long term (current) drug therapy; E78.00 Pure hypercholesterolemia, unspecified
CPT/HCPCS: 36415; 80053; 80061; 84439; 84443; 85025

== ENCOUNTER 2023-04-22 14:42 | Outpatient (CLI) | payer MEDICARE, SELFPAY ==
[2023-04-22 15:10] LABS: Basophils Percent Auto 1.1 % (0.2-1.2); Eosinophils Absolute Auto 0.1 K/mm3 (0-0.3); Eosinophils Percent Auto 1.9 % (0-4.4); Hematocrit 35.5 % (37.0-47.0); Immature Granulocyte Absolute 0.01 K/mm3 (0.00-0.031); Immature Granulocyte Percent A 0.3 % (0-0.5); Lymphocytes Absolute Auto 1.18 K/mm3 (0.9-3.2); Mean Corpuscular HGB Conc 33.8 g/dl (32-36); Mean Corpuscular Hemoglobin 29.8 pg (26-34); Mean Corpuscular Volume 88.1 fl (80-100); Mean Platelet Volume 9.8 fl (7.4-10.4); Monocytes Absolute Auto 0.4 K/mm3 (0.1-0.6); Monocytes Percent Auto 11.4 % (2.6-8.5); Neutrophils Percent Auto 53.3 % (45.5-73.1); Platelet Count Result 166 k/mm3 (150-375); Red Blood Count 4.03 M/mm3 (4.2-5.4); Red Cell Distribution Width 13.2 % (11.5-14.5); White Blood Count 3.7 K/mm3 (4.5-10.0)
[2023-04-22 16:40] LABS: Iron 61 ug/dL (37-170)
[2023-04-22 16:44] LABS: Alanine Aminotransferase 20 U/L (6-35); Albumin Level 4.2 g/dL (3.5-5.1); Alkaline Phosphatase 40 U/L (38-126); Anion Gap 3 mmol/L (8-16); Aspartate Amino Transferase 27 U/L (14-36); Bilirubin,Total 0.6 mg/dL (0.2-1.3); Blood Urea Nitrogen 15 mg/dL (7-17); Calcium 8.9 mg/dL (8.4-10.2); Carbon Dioxide 31 mmol/L (22-30); Chloride 98 mmol/L (98-107); Estimated Glomerular Filt Rate > 60; Glucose 95 mg/dL (65-110); Potassium 4.3 mmol/L (3.4-5.0); Sodium 132 mmol/L (137-145)
[2023-04-22 16:47] LABS: Rheumatoid Factor < 12.0 IU/ML (<12)
[2023-04-22 16:54] LABS: Percent Iron Saturation 17 % (20-50)
[2023-04-22 17:53] LABS: Folic Acid > 20.0 ng/mL (2.76->20)
[2023-04-25 06:35] LABS: Methylmalonic Acid 147 nmol/L (87-318)
== END 2023-04-22 14:43 | disposition home or self-care (01) ==
PROVIDERS: PCP Internal Medicine; Visit Provider Internal Medicine Hematology & Oncology
DX: D64.9 Anemia, unspecified (principal)
CPT/HCPCS: 36415; 80053; 82607; 82728; 82746; 83540; 83550; 83921; 84443; 85025; 86038; 86430

== ENCOUNTER 2023-06-21 14:01 | Outpatient (CLI) | payer MEDICARE, SELFPAY ==
--- NOTE | ~2023-06-21 | XR_ITS ---
XR knee LT 3V 06/21/2023 14:45 Indication: Left knee pain Procedure: 3 views left knee Comparison: No prior studies for comparison. Findings: There is anatomic alignment. No fracture, subluxation or dislocation. No significant joint effusion. No foreign bodies. Impression: 1: No significant bone or joint abnormality. Reviewed, dictated and finalized at location B. SUPPORT ANALYST Impression: 1: No significant bone or joint abnormality.
== END 2023-06-21 14:02 | disposition home or self-care (01) ==
PROVIDERS: PCP Internal Medicine; Visit Provider Internal Medicine
DX: M25.562 Pain in left knee (principal)
CPT/HCPCS: 73562

== ENCOUNTER 2023-08-17 10:54 | Outpatient (CLI) | payer MEDICARE, SELFPAY ==
[2023-08-17 11:35] LABS: Basophils Percent Auto 1.2 % (0.2-1.2); Eosinophils Absolute Auto 0.1 K/mm3 (0-0.3); Eosinophils Percent Auto 3.5 % (0-4.4); Hematocrit 35.5 % (37.0-47.0); Hemoglobin 12.1 g/dL (12.0-15.0); Lymphocytes Percent Auto 35.2 % (18.3-44.2); Mean Corpuscular HGB Conc 34.1 g/dl (32-36); Mean Corpuscular Hemoglobin 30.1 pg (26-34); Mean Corpuscular Volume 88.3 fl (80-100); Mean Platelet Volume 10.4 fl (7.4-10.4); Monocytes Absolute Auto 0.4 K/mm3 (0.1-0.6); Monocytes Percent Auto 11.1 % (2.6-8.5); Neutrophils Absolute Auto 1.7 K/mm3 (1.3-6.7); Platelet Count Result 180 k/mm3 (150-375); Red Blood Count 4.02 M/mm3 (4.2-5.4); Red Cell Distribution Width 12.9 % (11.5-14.5); White Blood Count 3.4 K/mm3 (4.5-10.0)
[2023-08-17 11:52] LABS: Alanine Aminotransferase 18 U/L (6-35); Alkaline Phosphatase 46 U/L (38-126); Anion Gap 5 mmol/L (8-16); Aspartate Amino Transferase 28 U/L (14-36); Bilirubin,Total 0.8 mg/dL (0.2-1.3); Blood Urea Nitrogen 17 mg/dL (7-17); Carbon Dioxide 29 mmol/L (22-30); Chloride 100 mmol/L (98-107); Cholesterol 172 mg/dL (0-200); Estimated Glomerular Filt Rate > 60; Glucose 101 mg/dL (65-110); HDL Direct 72 mg/dL; Potassium 4.7 mmol/L (3.4-5.0); Sodium 134 mmol/L (137-145); Triglycerides 66 mg/dL (<150)
[2023-08-17 12:03] LABS: LDL Cholesterol Direct 78 mg/dL
[2023-08-17 12:19] LABS: Free T4 Free Thyroxine 1.36 ng/mL (0.78-2.19)
[2023-08-17 16:29] LABS: Hemoglobin A1C 5.5 % (<5.7)
== END 2023-08-17 10:55 | disposition home or self-care (01) ==
LOC: ANHLAB 10:57
PROVIDERS: PCP Internal Medicine; Visit Provider Internal Medicine
DX: E78.00 Pure hypercholesterolemia, unspecified (principal); Z79.899 Other long term (current) drug therapy; Z13.1 Encounter for screening for diabetes mellitus; E03.9 Hypothyroidism, unspecified
CPT/HCPCS: 36415; 80053; 80061; 83036; 84439; 84443; 85025

== ENCOUNTER 2023-09-10 12:49 | Outpatient (CLI) | payer MEDICARE, SELFPAY ==
[2023-09-10 13:09] LABS: Eosinophils Absolute Auto 0.1 K/mm3 (0-0.3); Eosinophils Percent Auto 2.4 % (0-4.4); Hematocrit 36.6 % (37.0-47.0); Hemoglobin 12.6 g/dL (12.0-15.0); Lymphocytes Absolute Auto 1.15 K/mm3 (0.9-3.2); Lymphocytes Percent Auto 30.2 % (18.3-44.2); Mean Corpuscular HGB Conc 34.4 g/dl (32-36); Mean Corpuscular Hemoglobin 30.4 pg (26-34); Mean Corpuscular Volume 88.4 fl (80-100); Mean Platelet Volume 9.7 fl (7.4-10.4); Monocytes Absolute Auto 0.4 K/mm3 (0.1-0.6); Monocytes Percent Auto 10.5 % (2.6-8.5); Neutrophils Absolute Auto 2.1 K/mm3 (1.3-6.7); Neutrophils Percent Auto 55.9 % (45.5-73.1); Platelet Count Result 189 k/mm3 (150-375); Red Blood Count 4.14 M/mm3 (4.2-5.4); Red Cell Distribution Width 12.9 % (11.5-14.5); White Blood Count 3.8 K/mm3 (4.5-10.0)
[2023-09-10 16:28] LABS: Iron 78 ug/dL (37-170)
[2023-09-10 16:39] LABS: Anion Gap 8 mmol/L (8-16); Blood Urea Nitrogen 17 mg/dL (7-17); Calcium 9.5 mg/dL (8.4-10.2); Carbon Dioxide 26 mmol/L (22-30); Chloride 98 mmol/L (98-107); Estimated Glomerular Filt Rate > 60; Glucose 94 mg/dL (65-110); Sodium 132 mmol/L (137-145)
[2023-09-10 16:42] LABS: Percent Iron Saturation 20 % (20-50)
[2023-09-10 17:56] LABS: Folic Acid > 20.0 ng/mL (2.76->20)
== END 2023-09-10 12:50 | disposition home or self-care (01) ==
PROVIDERS: PCP Internal Medicine; Visit Provider Internal Medicine Hematology & Oncology
DX: D64.9 Anemia, unspecified (principal)
CPT/HCPCS: 36415; 80048; 82607; 82728; 82746; 83540; 83550; 85025

== ENCOUNTER 2024-01-24 10:23 | Outpatient (CLI) | payer MEDICARE, SELFPAY ==
[2024-01-24 11:14] LABS: Basophils Percent Auto 1.2 % (0.2-1.2); Eosinophils Absolute Auto 0.1 K/mm3 (0-0.3); Hematocrit 34.5 % (37.0-47.0); Hemoglobin 12.2 g/dL (12.0-15.0); Immature Granulocyte Absolute 0.01 K/mm3 (0.00-0.031); Immature Granulocyte Percent A 0.3 % (0-0.5); Lymphocytes Absolute Auto 1.19 K/mm3 (0.9-3.2); Lymphocytes Percent Auto 36.1 % (18.3-44.2); Mean Corpuscular HGB Conc 35.4 g/dl (32-36); Mean Corpuscular Hemoglobin 30.9 pg (26-34); Mean Corpuscular Volume 87.3 fl (80-100); Mean Platelet Volume 10.5 fl (7.4-10.4); Monocytes Absolute Auto 0.4 K/mm3 (0.1-0.6); Monocytes Percent Auto 11.8 % (2.6-8.5); Neutrophils Absolute Auto 1.6 K/mm3 (1.3-6.7); Neutrophils Percent Auto 47.6 % (45.5-73.1); Platelet Count Result 163 k/mm3 (150-375); Red Blood Count 3.95 M/mm3 (4.2-5.4); White Blood Count 3.3 K/mm3 (4.5-10.0)
[2024-01-24 11:27] LABS: Alanine Aminotransferase 18 U/L (6-35); Albumin Level 4.4 g/dL (3.5-5.1); Alkaline Phosphatase 43 U/L (38-126); Anion Gap 4 mmol/L (4-12); Aspartate Amino Transferase 31 U/L (14-36); Bilirubin,Total 0.6 mg/dL (0.2-1.3); Blood Urea Nitrogen 15 mg/dL (7-17); Carbon Dioxide 31 mmol/L (22-30); Chloride 97 mmol/L (98-107); Cholesterol 164 mg/dL (0-200); Estimated Glomerular Filt Rate > 60; Glucose 92 mg/dL (65-110); HDL Direct 67 mg/dL; Potassium 4.3 mmol/L (3.4-5.0); Sodium 132 mmol/L (137-145); Triglycerides 125 mg/dL (<150)
[2024-01-24 11:38] LABS: LDL Cholesterol Direct 74 mg/dL
[2024-01-24 12:05] LABS: Free T4 Free Thyroxine 1.37 ng/mL (0.78-2.19); Vitamin D 25 Hydroxy 86.7 ng/mL
[2024-01-24 15:23] LABS: Appearance Urine Clear (Clear); Bilirubin Urine Negative (Negative); Blood Urine Negative (Negative); Color Urine Yellow (Yellow); Glucose Urine UA Negative (Negative); Ketones Urine Negative (Negative); Leukocyte Esterase Ur Negative LEU/UL (Negative); Nitrate Urine Negative (Negative); Protein Urine Negative (Negative); Specific Grav Ur 1.012 (1.001-1.035); Urobilinogen Urine 0.2 mg/dL (<2.0); pH Urine 6.5 (5.0-9.0)
[2024-01-24 15:27] LABS: Add Urine Microscopic? NO
== END 2024-01-24 10:24 | disposition home or self-care (01) ==
LOC: ANHLAB 10:30
PROVIDERS: PCP Internal Medicine; Visit Provider Internal Medicine
DX: E55.9 Vitamin D deficiency, unspecified (principal); E03.9 Hypothyroidism, unspecified; Z79.899 Other long term (current) drug therapy; E78.00 Pure hypercholesterolemia, unspecified
CPT/HCPCS: 36415; 80053; 80061; 81003; 82306; 84439; 84443; 85025

== ENCOUNTER 2024-02-25 12:56 | Outpatient (CLI) | payer MEDICARE, SELFPAY ==
--- NOTE | ~2024-02-25 | US_ITS ---
EXAMINATION: US carotid duplex BI DATE: 02/25/2024 14:20 INDICATION: Lightheadedness. TECHNIQUE: Grayscale, color Doppler, and pulsed Doppler images of the cervical carotid arteries were obtained. The degree of vessel stenosis is placed in one of the following categories: normal, <50%, 5 0-69%, >=70% but less than near-occlusion, near-occlusion, or total occlusion. Note that percent sten osis relative to normal distal artery lumen diameter is indirectly measured from velocity measurement s as described by Jose, et al. Radiology 2003; 229:340-346. COMPARISON: None. FINDINGS: RIGHT: The right common carotid artery (CCA) peak systolic velocity (PSV) is 50 cm/s. The right internal car otid artery (ICA) PSV is 72 cm/s. The right ICA end-diastolic velocity (EDV) is 19 cm/s. The right IC A/CCA PSV ratio is 1.5. Grayscale and color Doppler images yield an estimate of <50% diameter reducti on from plaque in the ICA. There is antegrade flow in the right vertebral artery. LEFT: The left CCA PSV is 64 cm/s. The left ICA PSV is 72 cm/s. The left ICA EDV is 16 cm/s. The left ICA/C CA PSV ratio is 1.1. Grayscale and color Doppler images yield an estimate of <50% diameter reduction from plaque in the ICA. There is antegrade flow in the left vertebral artery. IMPRESSION: 1. <50% stenosis in the right internal carotid artery. 2. <50% stenosis in the left internal carotid artery. Reviewed, dictated and finalized at location A.
== END 2024-02-25 12:57 | disposition home or self-care (01) ==
LOC: ANHIMG 12:56
PROVIDERS: PCP Internal Medicine; Visit Provider Internal Medicine Cardiovascular Disease
DX: R42 Dizziness and giddiness (principal); I65.23 Occlusion and stenosis of bilateral carotid arteries
CPT/HCPCS: 93880

== ENCOUNTER 2024-02-28 19:22 | Emergency (ER) | payer MEDICARE, SELFPAY ==
--- NOTE | ~2024-02-28 | CT_ITS ---
CT brain wo con Ordering provider: Ruth Plasencia MD History: 78 years Female with . fall, head injury . Comparison: None. Technique: CT of the head without contrast. Radiation reduction technique utilized. DLP is 681 mGy-cm FINDINGS: BRAIN PARENCHYMA AND CSF SPACES: Mild leukoaraiosis and diffuse cortical atrophy. Mild atheromatous d isease. No midline shift, mass effect or hemorrhage. The brain parenchyma and CSF spaces are otherwi se normal. VISUALIZED PARANASAL SINUSES: Well aerated. MASTOIDS: Well aerated. BONES: The bones appear intact. SOFT TISSUES: Visualized nasopharynx is normal. Right occipital scalp hematoma. Superficial soft tissues are normal. IMPRESSION: No acute intracranial findings. Reviewed, dictated and finalized at location A.
--- NOTE | ~2024-02-28 | CT_ITS ---
CT cervical spine wo con Ordering provider: Ruth Plasencia MD History: . trauma . Comparison: Technique: CT of the cervical spine was performed without contrast. Sagittal and coronal reformatted images were also obtained and reviewed. Automated exposure control and iterative reconstruction ly hnique were employed. The dose-length product was 160.18 mGy-cm. FINDINGS: VERTEBRAE: No subluxation or acute fracture. The occipital condyles are intact. Minimal anterolisthe sis seen at the level of C5-C6. DISC SPACES: Normal. Multilevel facet joint disease. PARASPINOUS SOFT TISSUES: Normal. IMPRESSION: No acute osseous abnormality cervical spine. Reviewed, dictated and finalized at location A.
[2024-02-28 19:46] VITALS: BP 131/47; PULSE 61; RESP 20; TEMP 36.5; O2SAT 99
--- NOTE | 2024-02-28 20:20 | PC.NURSE ---
Patient taken to CT via w/c from waiting room at this time.
[2024-02-28] MEDS: ACETAMINOPHEN 500 MG TABLET 1000 MG PO (21:14)
--- NOTE | 2024-02-28 21:30 | ED.FALL ---
HPI - Fall General Chief Complaint: Fall Stated Complaint: Fall, head lac Time Seen by Provider: 02/28/24 21:01 History of Present Illness HPI Narrative: patient tripped on her concrete steps and fell, hitting her head against the citing, she had no loss of consciousness, her was immediately at her side, states that she was not confused afterwards, nauseous or any other concerning symptoms, and she had normal eye movements. She initially had a bad headache which has gotten better Related Data Home Medications Medication Instructions Recorded Confirmed aspirin 81 mg chewable tablet 81 mg PO DAILY 08/12/19 11/18/23 cholecalciferol (vitamin D3) 100 4,000 unit PO DAILY 08/12/19 11/18/23 mcg (4,000 unit) capsule (Vitamin D3) denosumab 60 mg/mL subcutaneous 60 mg subcut [id number] 08/21/19 11/18/23 syringe (Prolia) metoprolol tartrate 25 mg tablet 12.5 mg PO BID 06/26/23 11/18/23 diclofenac sodium 1 % topical gel 2 g topical QID 02/19/24 (Arthritis Pain (diclofenac)) magnesium oxide 500 mg capsule 500 mg PO DAILY 02/19/24 mecobalamin (vitamin B12) 1,000 1,000 mcg PO DAILY 02/19/24 mcg lozenges nitroglycerin 0.4 mg sublingual 0.4 mg sublingual Q5M PRN 02/19/24 tablet pantoprazole 40 mg tablet,delayed 40 mg PO QAM 02/19/24 release (Protonix) Allergies Allergy/AdvReac Type Severity Reaction Status Date / Time Penicillins Allergy Unknown Unknown Verified 02/28/24 19:51 Review of Systems Review of Systems: All systems reviewed & are unremarkable except as noted in HPI and below PMFSH Past Medical History Medical History Abnormal finding of blood chemistry Anxiety BMI 21.0-21.9, adult BMI 22.0-22.9, adult Chest discomfort Chronic laryngitis Cryptic tonsil Discharge of right eye Elevated LFTs Encounter for Medicare annual wellness exam Encounter for routine adult health examination with abnormal findings Encounter for routine adult health examination without abnormal findings Encounter for screening for cardiovascular disorders Epigastric pain Fatigue Hemoptysis History of stress test (~2020) Hx of atypical migraine Hypercholesterolemia Hyperlipidemia Hyponatremia Hypothyroidism Insect bite Left ear pain Left shoulder pain Leukopenia Migraine Muscle cramps Neutropenia On seo expert drug therapy Osteopenia Osteoporosis Palpitations Raynauds disease Seasonal allergies Sinus drainage Sinusitis Swelling of right ring finger Throat pain Tick bite of abdomen Surgical History Surgical History H/O thyroidectomy (~1989) H/O total hysterectomy (~1983) Family History Family History Father Family history of cardiovascular disease Family history of heart disease in male family member before age 55 Grandparent Carcinoma of colon Mother Osteoporosis Other Diabetes mellitus Social History Social History Smoking status: Never smoker Second hand tobacco smoke exposure: No Alcohol intake: never Substance use: never Substance use type: does not use Do You Feel Safe in your Home?: Yes Lack of Transportation: No Lack of Food: Never True Current Housing: I Have Housing Concerned About Future Housing: No Difficulty Paying Gas/Electric Bills: No Difficulty Paying for Meds: No Currently Unemployed: No Education: High School Diploma/GED Difficulty w/ Childcare or Family Care: No Living arrangements: with family Gender identity (if verbalized by the patient): Female Spiritual care concerns: No Exam Narrative: EXAMINATION OF ORGAN SYSTEMS/BODY AREAS: Constitutional: Vital signs per nursing GENERAL:[No acute distress, non-toxic appearing.] HEAD: hematoma to the back of her head, no signs of lacerations or bleeding EYES: EO
[2024-02-28 22:20] VITALS: BP 129/55; PULSE 60; RESP 16; TEMP 36.8; O2SAT 99
== END 2024-02-28 22:20 | disposition home or self-care (01) ==
PROVIDERS: Emergency Provider Emergency Medicine; PCP Internal Medicine
DX: S00.03XA Contusion of scalp, initial encounter (principal); I73.00 Raynaud's syndrome without gangrene; E78.00 Pure hypercholesterolemia, unspecified; E89.0 Postprocedural hypothyroidism; M85.80 Other specified disorders of bone density and structure, unspecified site; M81.0 Age-related osteoporosis without current pathological fracture; F41.9 Anxiety disorder, unspecified; Z90.710 Acquired absence of both cervix and uterus; Z79.82 Long term (current) use of aspirin; Z79.899 Other long term (current) drug therapy; W10.9XXA Fall (on) (from) unspecified stairs and steps, initial encounter
CPT/HCPCS: 70450; 72125; 99284; A9270

== ENCOUNTER 2024-09-15 12:42 | Outpatient (CLI) | payer MEDICARE, SELFPAY ==
[2024-09-15 13:39] LABS: Influenza A QL RT-PCR Negative (Negative); Influenza B QL RT-PCR Negative (Negative); RSV RNA, RT-PCR Negative (Negative); SARS-CoV-2 RNA PCR Negative (Negative)
--- OUTSIDE RECORDS SUMMARY | 2024-09-15 14:17 | XMS_ITS | Encounter Summary ---
Author Organization [facility] Address [address] [place] [address] Care Team Providers Care Oreman Name Role Phone Fadi Turk MD Primary Care Provider + Encounter Details Date Type Department Care Team (Latest Contact Info) Description 06/23/2007 Outpatient Historical HIS [facility] [place] Chappell, Sara Ames MD NO ADDRESS ON FILE Other Screening Mammogram Social History Tobacco Use Types Packs/Day Years Used Date Smoking Tobacco: Never Assessed Comments Unknown Sex and Gender Information Value Date Recorded Sex Assigned at Not on file Legal Sex Female 4:11 AM DISTRICT RESOURCE OFFICER Gender Identity Not on file Sexual Orientation Not on file documented as of this encounter Plan of Treatment Not on file documented as of this encounter Visit Diagnoses Diagnosis Other screening mammogram documented in this encounter Care Teams Oreman Relationship Specialty Start Date End Date Fadi Turk MD [address] [place] [id number] PCP - General Internal Medicine 02/21/23 documented as of this encounter
--- OUTSIDE RECORDS SUMMARY | 2024-09-15 14:17 | XMS_ITS | Encounter Summary ---
Author Organization [facility] Address [address] [place] [address] Care Team Providers Care Tip Cementer Name Role Phone Fadi Turk MD Primary Care Provider + Encounter Details Date Type Department Care Team (Latest Contact Info) Description 11/03/2004 Outpatient Historical HIS [facility] [place] Chappell, Sara Ames MD NO ADDRESS ON FILE SCREENING MAMM-MAILG NEOPL-OTHER (Primary Dx) Social History Tobacco Use Types Packs/Day Years Used Date Smoking Tobacco: Never Assessed Comments Unknown Sex and Gender Information Value Date Recorded Sex Assigned at Not on file Legal Sex Female 4:11 AM BACKSIDE GRINDER Gender Identity Not on file Sexual Orientation Not on file documented as of this encounter Plan of Treatment Not on file documented as of this encounter Visit Diagnoses Diagnosis Other screening mammogram- Primary documented in this encounter Care Teams Tip Cementer Relationship Specialty Start Date End Date Fadi Turk MD [address] [place] [id number] PCP - General Internal Medicine 02/21/23 documented as of this encounter
--- OUTSIDE RECORDS SUMMARY | 2024-09-15 14:17 | XMS_ITS | Encounter Summary ---
Author Organization [facility] Address [address] [place] [address] Care Team Providers Care Manager Auto Name Role Phone Fadi Turk MD Primary Care Provider + Encounter Details Date Type Department Care Team (Latest Contact Info) Description 06/30/2008 Outpatient Historical HIS [facility] [place] Chappell, Sara Ames MD NO ADDRESS ON FILE Other Screening Mammogram Social History Tobacco Use Types Packs/Day Years Used Date Smoking Tobacco: Never Assessed Comments Unknown Sex and Gender Information Value Date Recorded Sex Assigned at Not on file Legal Sex Female 4:11 AM SAFETY INVESTIGATOR Gender Identity Not on file Sexual Orientation Not on file documented as of this encounter Plan of Treatment Not on file documented as of this encounter Procedures Procedure Name Priority Date/Time Associated Diagnosis Comments MAMMO SCREEN BILAT W OR WO CAD Routine 06/30/2008 1:15 PM SAFETY INVESTIGATOR documented in this encounter Results * MAMMO DIGITAL SCREEN BILAT (06/30/2008 1:15 PM SAFETY INVESTIGATOR) Anatomical Region Laterality Modality Breast Bilateral Other 06/30/2008 1:15 PM SAFETY INVESTIGATOR Narrative 07/01/2008 5:19 PM SAFETY INVESTIGATOR [facility] [address] [place], [place] [address] Admit Date: 06/30/2008 CAITLYNTAIMARIE DIANA Sex: F Admit Prov: SARA CHAPPELL Date: 1945 Primary Care Prov: BRIANNE GARCÍA CMRN: [id number] Room: [place] N: [id number] IMAGING SERVICES Ordering Prov: SARA CHAPPELL Accession Number: [id number] Interpretation BILATERAL SCREENING DIGITAL MAMMOGRAMS WITH COMPUTER ASSISTED DIAGNOSIS 06/30/2008 History: Annual screening study. Comparison is made with 06/23/07 and 11/03/04. There are scattered fibroglandular densities. There is a small asymmetric density in the posterior outer left breast in the CC view. No other new mass, suspicious calcifications or areas of asymmetry or distortion are identified. The images were reviewed using the CAD system. Impression: Left breast: Small asymmetric density posterior outer breast. Recommend spot views and sonography. Right breast: Negative/stable. Recommend routine followup. Overall assessment: BIRADS category 1 - Negative Assessment BIRADS: 1-Negative Recommendation: Normal interval follow-up Dictated by: CECILIA ROSS Electronically signed by: CECILIA ROSS 07/01/2008 17:17 Transcribed: 07/01/2008 14:59 AMK Procedure Note Cecilia Ross - 07/01/2008 [facility] [address] [place], [place] [address] Admit Date: 06/30/2008 DIANA ALEXANDER Sex: F Admit Prov: SARA CHAPPELL Date: 1945 Primary Care Prov: BRIANNE GARCÍA CMRN: [id number] Room: [place] N: [id number] IMAGING SERVICES Ordering Prov: SARA CHAPPELL Interpretation BILATERAL SCREENING DIGITAL MAMMOGRAMS WITH COMPUTER ASSISTEDDIAGNOSIS 06/30/2008 History: Annual screening study. Comparison is made with 06/23/07 and 11/03/04. There are scattered fibroglandular densities. There is a small asymmetric density inthe posterior outer left breast in the CC view. No other new mass,suspicious calcifications or areas of asymmetry or distortion are identified.The images were reviewed using the CAD system. Impression: Left breast: Small asymmetric density posterior outer breast.Recommend spot views and sonography. Right breast: Negative/stable. Recommend routine followup. Overall assessment: BIRADS category 1 - Negative Assessment BIRADS: 1-Negative Recommendation: Normal interval follow-up Dictated by: CECILIA ROSS Electronically signed by: CECILIA ROSS 07/01/2008 17:17 Transcribed: 07/01/2008 14:59 AMK us Sara Chappell MD MAMMO ORDERABLES F inal Result documented in this encounter Visit Diagnoses Diagnosis Other screening mammogram documented in this encounter Care Teams Manager Auto Relationship Specialty Start Date End Date Fadi Turk MD [address] [place] [phone] PCP - General Internal Medicine 02/21/23 documented as of this encounter
--- OUTSIDE RECORDS SUMMARY | 2024-09-15 14:17 | XMS_ITS | Encounter Summary ---
Author Organization [facility] Address [address] [place] [address] Care Team Providers Care Elementary Science Teacher Name Role Phone Fadi Turk MD Primary Care Provider + Encounter Details Date Type Department Care Team (Latest Contact Info) Description 01/12/2009 Outpatient Historical HIS [facility] Sara Portillo MD NO ADDRESS ON FILE Other Screening Mammogram Social History Tobacco Use Types Packs/Day Years Used Date Smoking Tobacco: Never Assessed Comments Unknown Sex and Gender Information Value Date Recorded Sex Assigned at Not on file Legal Sex Female 4:11 AM STAFFING COORDINATOR Gender Identity Not on file Sexual Orientation Not on file documented as of this encounter Plan of Treatment Not on file documented as of this encounter Procedures Procedure Name Priority Date/Time Associated Diagnosis Comments MAMMO SCREEN BILAT W OR WO CAD Routine 01/12/2009 1:43 PM CDT documented in this encounter Results * MAMMO DIGITAL SCREEN BILAT (01/12/2009 1:43 PM CDT) Anatomical Region Laterality Modality Breast Bilateral Other 01/12/2009 1:43 PM CDT Narrative 01/13/2009 1:38 PM CDT [address] [address] Admit Date: 01/12/2009 ALCIRATAIMAIKOL ELENI Sex: F Admit Prov: SARA CHAPPELL Date: 1945 Primary Care Prov: BRIANNE GARCÍA CMRN: [id number] [facility]: [id number] IMAGING SERVICES Ordering Prov: SARA CHAPPELL Accession Number: [id number] Interpretation BILATERAL FULL FIELD DIGITAL SCREENING MAMMOGRAM WITH CAD. Date: 01/12/2009 History: Routine Screening. Technique: Full field digital craniocaudal and mediolateral oblique projections of both breasts were obtained. Computer aided detection was performed. Comparison: 06/2008, 06/2007, 04/2006, 10/2004 Breast Parenchymal Composition: Scattered fibroglandular densities. Findings: No suspicious mass, suspicious microcalcifications, or architectural distortion in either breast is identified. Since the prior study, there has been no significant interval change. The computer aided detection system detects no significant abnormality. Overall Assessment: BI-RADS category 1: Negative. Recommendation: Annual mammography is recommended. Assessment BIRADS: 1-Negative Recommendation: Normal interval follow-up Dictated by: DANIA STAFFORD Electronically signed by: DANIA STAFFORD 01/13/2009 13:36 Transcribed: 01/13/2009 08:41 AMK Procedure Note Dania Stafford - 01/13/[address] [address] Admit Date: 01/12/2009 ELENI ALEXANDER Sex: F Admit Prov: SARA CHAPPELL Date: 1945 Primary Care Prov: BRIANNE GARCÍA CMRN: [id number] Room: SANTAJerrell N: [id number] IMAGING SERVICES Ordering Prov: SARA CHAPPELL Interpretation BILATERAL FULL FIELD DIGITAL SCREENING MAMMOGRAM WITH CAD. Date: 01/12/2009 History: Routine Screening. Technique: Full field digital craniocaudal and mediolateral oblique projections of both breasts were obtained. Computer aided detectionwas performed. Comparison: 06/2008, 06/2007, 04/2006, 10/2004 Breast Parenchymal Composition: Scattered fibroglandular densities. Findings: No suspicious mass, suspicious microcalcifications, or architectural distortion in either breast is identified. Since theprior study, there has been no significant interval change. The computeraided detection system detects no significant abnormality. Overall Assessment: BI-RADS category 1: Negative. Recommendation: Annual mammography is recommended. Assessment BIRADS: 1-Negative Recommendation: Normal interval follow-up Dictated by: DANIA STAFFORD Electronically signed by: DANIA STAFFORD 01/13/2009 13:36 Transcribed: 01/13/2009 08:41 AMK us Sara Chappell MD MAMMO ORDERABLES F inal Result documented in this encounter Visit Diagnoses Diagnosis Other screening mammogram documented in this encounter Care Teams Elementary Science Teacher Relationship Specialty Start Date End Date Fadi Turk MD [address] [place] [phone] PCP - General Internal Medicine 02/21/23 documented as of this encounter
--- OUTSIDE RECORDS SUMMARY | 2024-09-15 14:17 | XMS_ITS | Clinical Summary ---
Author Organization [facility] Aram Barclay Address [address] [place] [address] Care Team Providers Care Railroad Cook Name Role Phone Fadi Turk MD Primary Care Provider + Allergies No known active allergies Medications SUMAtriptan (IMITREX) 25 mg tablet Take 25 mg by mouth every 2 hours as needed for Other (See Comment). may repeat in 2 hours; max dose 200mg in 24 hours Active metoprolol tartrate (LOPRESSOR) 25 mg tablet Take 25 mg by mouth 2 times daily. Active levothyroxine 50 mcg tablet Take 50 mcg by mouth daily in the morning. Active levothyroxine 75 mcg tablet Take 75 mcg by mouth daily in the morning. Active omeprazole (PriLOSEC) 20 mg Capsule, Delayed Release(E.C.) Take 20 mg by mouth daily. Active ALPRAZolam (XANAX) 0.5 mg tablet Take 0.5 mg by mouth nightly as needed for Anxiety. Active simvastatin (ZOCOR) 20 mg tablet Take 20 mg by mouth daily with supper. Active cholecalciferol , vitamin D3, 5,000 unit Take 5,000 Units by mouth daily. Active coenzyme Q10 Capsule Take 10 mg by mouth daily. Active CYANOCOBALAMIN, VITAMIN B-12, ORAL Take by mouth. Active Active Problems No known active problems Encounters Date Type Department Care Team Description 09/08/2024 External Device Data ST[facility] ABSTRACTION Provider, Abstract 08/13/2024 External Device Data [facility] ABSTRACTION Provider, Abstract 08/12/2024 External Device Data [facility] ABSTRACTION Provider, Abstract 08/11/2024 External Device Data ST[facility] ABSTRACTION Provider, Abstract 08/07/2024 Orders Only [facility] Oncology and Hematology [facility] [address] [place] [address] Anthony Vza MD Leukopenia, unspecified type (Primary Dx) from Last 3 Months Family History Medical History Relation Name Comments Heart Disease Father Uterine Cancer Mother Breast Cancer Neg Hx Cancer Neg Hx Ovarian Cancer Neg Hx Relation Name Status Comments Father Mother Sister Alive Social History Tobacco Use Types Packs/Day Years Used Date Smoking Tobacco: Never Smokeless Tobacco: Never Alcohol Use Standard Drinks/Week Comments Never 0 (1 standard drink = 0.6 oz pur e alcohol) Comments Unknown Sex and Gender Information Value Date Recorded Sex Assigned at Not on file Legal Sex Female 4:11 AM COAT JOINER LOCKSTITCH Gender Identity Not on file Sexual Orientation Not on file Occupation Industry Job Start Date Job End Date Not on file Not on file Not on file Not on file Last Filed Vital Signs Vital Sign Reading Time Taken Comments Blood Pressure 122/40 03/16/2024 1:39 PM CDT Pulse 64 03/16/2024 1:36 PM CDT Temperature 36.4 C (97.5 F) 03/16/2024 1:36 PM CDT Respiratory Rate 15 03/16/2024 1:36 PM CDT Oxygen Saturation 96% 03/16/2024 1:36 PM CDT Inhaled Oxygen Concentration - - Weight 59.2 kg (130 lb 9.6 oz) 03/16/2024 1:36 P M CDT Height 161.9 cm (5' 3.75 ) 04/22/2023 1:33 PM CD T Body Mass Index 22.59 04/22/2023 1:33 PM CDT Plan of Treatment Health Maintenance Due Date Last Done Comments Traditional Medicare (ACO) A nnual Wellness Visit 1964 ZOSTER VACCINE (1 of 2) 1995 PNEUMOCOCCAL VACCINE 65+ YEA RS (2 of 2 - PCV) 04/27/2012 04/27/2011 RSV VACCINE (60+ or ) (1 - 1-dose 75+ series) 2020 DTAP/TDAP/TD VACCINES (2 - T d or Tdap) 01/05/2023 01/05/2013 INFLUENZA VACCINE (#1) 2024 7, 06/08/2014, 04/23/2013, Additional history exists OSTEOPOROSIS SCREENING Completed 4, 10/03/2022, 08/27/2018, Additional history exists Insurance [facility]IC[facility] [id number] [facility] Address: [address] [address] [place] [address] [facility]ICARE [facility] [id number] MEDICARE Care Teams Railroad Cook Relationship Specialty Start Date End Date Fadi Turk MD [address] [place] [phone] PCP - General Internal Medicine 02/21/23
--- OUTSIDE RECORDS SUMMARY | 2024-09-15 14:17 | XMS_ITS | Clinical Summary ---
Author Organization [facility] Address [address] [place] [address] Care Team Providers Care Fire Range Technician Name Role Phone Fadi Turk MD Primary Care Provider Allergies Active Allergy Reactions Criticality Noted Date Comments Penicillins Hives 03/27/2024 Medications metoprolol succinate ER (TOPROL-XL) 25 MG 24 hr tablet Take 0.5 tablets (12.5 mg total) by mouth 2 (two) times a day. Active levothyroxine (SYNTHROID) 25 MCG tablet Take 1 tablet (25 mcg total) by mouth every morning. 50MCG ALTERNATING DAYS Active simvastatin (ZOCOR) 20 MG tablet Take 1 tablet (20 mg total) by mouth nightly at bedtime. Active ALPRAZolam (XANAX) 0.5 MG tablet Take 1 tablet (0.5 mg total) by mouth 3 (three) times daily as needed for Anxiety. Active Active Problems Problem Noted Date Diagnosed Date Family history of colon cancer 03/27/2024 Epigastric discomfort 07/19/2023 Family history of premature coronary artery dise ase 12/15/2020 LBBB (left bundle branch block) 12/15/2020 Hearing loss 09/09/2015 Laryngopharyngeal reflux 09/09/2015 Migraine 02/02/2014 Overview (07/31/2024): MIGRNE UNSP WO NTRC MGRN Hyperlipidemia LDL goal <70 01/06/2013 Hypothyroidism 10/16/2011 Overview (07/31/2024): HYPOTHYROIDISM NOS Gastroesophageal reflux disease 03/15/2011 Palpitations 12/04/2010 Overview (07/31/2024): Description: Palpitations Resolved Problems Problem Noted Date Diagnosed Date Resolved Date Screening for colon cancer 03/27/2024 0 03/30/2024 Screening for colon cancer 03/27/2024 0 08/17/2024 Encounters Date Type Department Care Team Description 08/14/[address] [place] [phone] Richard Blanton PA-C Question 08/11/2024 Orders Only [address] [place] [phone] Nacho Campos MD 08/11/[address] [place] [address] Nacho Campos MD Reschedule 07/30/[address] [place] [address] Nacho Campos MD Prior Authorization (Colonoscopy-[id number]) 06/16/2024 Scan HEALTH INFO SRVCS Scanned, Doc Med Group from Last 3 Months Family History Medical History Relation Comments Heart Disease Father Heart Disease Mother Colon Cancer Paternal Grandfather Relation Status Comments Father Mother Alive Paternal Grandfather Social History Tobacco Use Types Packs/Day Years Used Date Smoking Tobacco: Never Passive Smoke Exposure: Never Smokeless Tobacco: Never Tobacco Cessation:Counseling Given: No Alcohol Use Standard Drinks/Week Comments Never 0 (1 standard drink = 0.6 oz pur e alcohol) PHQ-2 Answer Date Recorded Patient Health Questionnaire-2 Score 0 03/27/2024 Comments Unknown Sex and Gender Information Value Date Recorded Sex Assigned at Not on file Legal Sex Female 8:18 AM GLOVE FACTORY SEWER Gender Identity Not on file Sexual Orientation Not on file Last Filed Vital Signs Vital Sign Reading Time Taken Comments Blood Pressure 112/62 03/27/2024 11:30 AM CDT Pulse 58 03/27/2024 11:30 AM CDT Temperature 36.4 C (97.5 F) 03/27/2024 11:30 AM CDT Respiratory Rate 18 03/27/2024 11:30 AM CDT Oxygen Saturation 98% 03/27/2024 11:30 AM CDT Inhaled Oxygen Concentration - - Weight 58.1 kg (128 lb) 07/31/2024 11:58 AM GLOVE FACTORY SEWER Height 160 cm (5' 3 ) 03/27/2024 11:30 AM CDT Body Mass Index 22.67 03/27/2024 11:30 AM CDT Plan of Treatment Upcoming Encounters Date Type Department Care Team (Latest Contact Info) Description 11/05/2024 1:00 PM CDT Appointment [facility] [address] [place] [address] Fadi Turk MD [address] [place] [phone] 02/25/2025 11:30 AM CDT Hospital En[facility] [place] [address] Nacho Campos MD [address] [id number] 02/25/2025 11:30 AM CDT - 02/25/2025 12:00 PM CDT Surgery [facility] [address] Nacho Campos MD [address] [address] COLONOSCOPY SCREENING Scheduled Procedures Name Priority Associated Diagnoses Date/Ti me COLONOSCOPY SCREENING Screening for colon cancer Family history of colon cancer 02/25/2025 11:30 AM CDT Health Maintenance Due Date Last Done Comments Hepatitis C 1963 Zoster Vaccines (1 of 2) 1995 Annual Medicare Wellness Visit 2010 Pneumococcal Vaccine: 65+ Years (2 of 2 - PCV) 04/27/2012 04/27/2011 RSV Immunization or 60+ Years (1 - 1-dose 75+ series) 2020 DTaP, Tdap and Td Vaccines (2 - Td or Tdap) 01/05/2023 01/05/2013 COVID-19 Vaccine ( - season) 2024 Influenza Adult (#1) 2024 04/04/2017, 06/08/2014, 04/23/2013, Additional history exists PHQ-2 (Physician [place]) 07/22/2024 03/27/2024 Dexa Scan (General) Completed 10/03/2022, 08/27/2018, 08/27/2018 Meningococcal B Vaccine Aged Out No l onger eligible based on patient's age to complete this topic Meningococcal Vaccine Aged Out No ginna too eligible based on patient's age to complete this topic RSV Immunizations Under 20 Months Aged Out No longer eligible based on patient's age to complete this topic Insurance RAILROAD MEDICARE [facility] Care Teams Fire Range Technician Relationship Specialty Start Date End Date Fadi Turk MD [address] [facility] [address] [facility] [address] [place] [address] PCP - General INTERNAL MEDICINE 08/22/20
--- OUTSIDE RECORDS SUMMARY | 2024-09-15 14:17 | XMS_ITS | Encounter Summary ---
Author Organization [facility] Address [address] [place] [address] Care Team Providers Care Pediatric Ophthalmologist Name Role Phone Fadi Turk MD Primary Care Provider + Encounter Details Date Type Department Care Team (Latest Contact Info) Description 04/24/2006 Outpatient Historical HIS [facility] Chappell, Sara Ames MD NO ADDRESS ON FILE Other Screening Mammogram (Primary Dx) Social History Tobacco Use Types Packs/Day Years Used Date Smoking Tobacco: Never Assessed Comments Unknown Sex and Gender Information Value Date Recorded Sex Assigned at Not on file Legal Sex Female 4:11 AM DRUG ROOM CLERK Gender Identity Not on file Sexual Orientation Not on file documented as of this encounter Plan of Treatment Not on file documented as of this encounter Visit Diagnoses Diagnosis Other screening mammogram- Primary documented in this encounter Care Teams Pediatric Ophthalmologist Relationship Specialty Start Date End Date Fadi Turk MD [address] [place] [address] PCP - General Internal Medicine 02/21/23 documented as of this encounter
== END 2024-09-15 12:43 | disposition home or self-care (01) ==
PROVIDERS: PCP Internal Medicine; Visit Provider Internal Medicine
DX: R50.9 Fever, unspecified (principal)
CPT/HCPCS: 87637

== ENCOUNTER 2024-12-07 11:06 | Outpatient (CLI) | payer MEDICARE, SELFPAY ==
[2024-12-07 11:27] LABS: Basophils Absolute Auto 0.1 K/mm3 (0.0-0.1); Basophils Percent Auto 1.6 % (0.2-1.2); Eosinophils Absolute Auto 0.1 K/mm3 (0-0.3); Eosinophils Percent Auto 2.9 % (0-4.4); Hematocrit 36.6 % (37.0-47.0); Hemoglobin 12.1 g/dL (12.0-15.0); Immature Granulocyte Absolute 0.01 K/mm3 (0.00-0.031); Immature Granulocyte Percent A 0.3 % (0-0.5); Lymphocytes Absolute Auto 1.22 K/mm3 (0.9-3.2); Lymphocytes Percent Auto 39.6 % (18.3-44.2); Mean Corpuscular HGB Conc 33.1 g/dl (32-36); Mean Corpuscular Hemoglobin 30.3 pg (26-34); Mean Corpuscular Volume 91.7 fl (80-100); Monocytes Absolute Auto 0.4 K/mm3 (0.1-0.6); Monocytes Percent Auto 12.7 % (2.6-8.5); Neutrophils Absolute Auto 1.3 K/mm3 (1.3-6.7); Neutrophils Percent Auto 42.9 % (45.5-73.1); Platelet Count Result 163 k/mm3 (150-375); Red Blood Count 3.99 M/mm3 (4.2-5.4); Red Cell Distribution Width 12.8 % (11.5-14.5); White Blood Count 3.1 K/mm3 (4.5-10.0)
[2024-12-07 11:38] LABS: Alanine Aminotransferase 24 U/L (6-35); Albumin Level 4.2 g/dL (3.5-5.1); Alkaline Phosphatase 39 U/L (38-126); Anion Gap 3 mmol/L (4-12); Aspartate Amino Transferase 37 U/L (14-36); Bilirubin,Total 0.8 mg/dL (0.2-1.3); Blood Urea Nitrogen 13 mg/dL (7-17); Carbon Dioxide 31 mmol/L (22-30); Chloride 101 mmol/L (98-107); Cholesterol 162 mg/dL (0-200); Estimated Glomerular Filt Rate > 60; Glucose 94 mg/dL (65-110); HDL Direct 62 mg/dL; Potassium 4.8 mmol/L (3.4-5.0); Sodium 135 mmol/L (137-145); Triglycerides 120 mg/dL (<150)
--- OUTSIDE RECORDS SUMMARY | 2024-12-07 11:48 | XMS_ITS | Encounter Summary ---
Author Organization [facility] Address [address] [place] [address] Care Team Providers Care Charter Coach Driver Name Role Phone Fadi Turk MD Primary Care Provider + Encounter Details Date Type Department Care Team (Latest Contact Info) Description 06/23/2007 Outpatient Historical HIS [facility] Chappell, Sara Ames MD NO ADDRESS ON FILE Other Screening Mammogram Social History Tobacco Use Types Packs/Day Years Used Date Smoking Tobacco: Never Assessed Comments Unknown Sex and Gender Information Value Date Recorded Sex Assigned at Not on file Legal Sex Female 4:11 AM BUMBOATER Gender Identity Not on file Sexual Orientation Not on file documented as of this encounter Plan of Treatment Not on file documented as of this encounter Visit Diagnoses Diagnosis Other screening mammogram documented in this encounter Care Teams Charter Coach Driver Relationship Specialty Start Date End Date Fadi Turk MD [address] [place] [phone] PCP - General Internal Medicine 02/21/23 documented as of this encounter
--- OUTSIDE RECORDS SUMMARY | 2024-12-07 11:48 | XMS_ITS | Encounter Summary ---
Author Organization [facility] Address [address] [place] [address] Care Team Providers Care Air Analysis Technician Name Role Phone Fadi Turk MD Primary Care Provider + Encounter Details Date Type Department Care Team (Latest Contact Info) Description 04/24/2006 Outpatient Historical HIS [facility] Chappell, Sara Ames MD NO ADDRESS ON FILE Other Screening Mammogram (Primary Dx) Social History Tobacco Use Types Packs/Day Years Used Date Smoking Tobacco: Never Assessed Comments Unknown Sex and Gender Information Value Date Recorded Sex Assigned at Not on file Legal Sex Female 4:11 AM GENERAL MANAGER ORACLE DATA CLOUD Gender Identity Not on file Sexual Orientation Not on file documented as of this encounter Plan of Treatment Not on file documented as of this encounter Visit Diagnoses Diagnosis Other screening mammogram- Primary documented in this encounter Care Teams Air Analysis Technician Relationship Specialty Start Date End Date Fadi Turk MD [address] [place] [address] PCP - General Internal Medicine 02/21/23 documented as of this encounter
--- OUTSIDE RECORDS SUMMARY | 2024-12-07 11:48 | XMS_ITS | Encounter Summary ---
Author Organization [facility] Address [address] [place] [address] Care Team Providers Care Sink Cutter Name Role Phone Fadi Turk MD Primary Care Provider + Encounter Details Date Type Department Care Team (Latest Contact Info) Description 11/03/2004 Outpatient Historical HIS [facility] Chappell, Sara Ames MD NO ADDRESS ON FILE SCREENING MAMM-MAILG NEOPL-OTHER (Primary Dx) Social History Tobacco Use Types Packs/Day Years Used Date Smoking Tobacco: Never Assessed Comments Unknown Sex and Gender Information Value Date Recorded Sex Assigned at Not on file Legal Sex Female 4:11 AM CANE SPLICER Gender Identity Not on file Sexual Orientation Not on file documented as of this encounter Plan of Treatment Not on file documented as of this encounter Visit Diagnoses Diagnosis Other screening mammogram- Primary documented in this encounter Care Teams Sink Cutter Relationship Specialty Start Date End Date Fadi Turk MD [address] [place] [address] PCP - General Internal Medicine 02/21/23 documented as of this encounter
--- OUTSIDE RECORDS SUMMARY | 2024-12-07 11:48 | XMS_ITS | Clinical Summary ---
Author Organization [facility] Aram Barclay Address [address] [place] [address] Care Team Providers Care Christian Education Director Name Role Phone Fadi Turk MD Primary [...] Active Active Problems No known active problems Family History Medical History Relation Name Comments [...] on file Legal Sex Female 4:11 AM MANAGER SEMICONDUCTOR Gender Identity Not on file Sexual Orientation [...] Health Maintenance Due Date Last Done Comments ZOSTER VACCINE (1 of 2) 1995 PNEUMOCOCCAL VACCINE 50+ YEA RS (2 of 2 - PCV) 04/27/2012 04/27/2011 RSV VACCINE (60+ or ) (1 - 1-dose 75+ series) 2020 DTAP/TDAP/TD VACCINES (2 - T d or Tdap) 01/05/2023 01/05/2013 INFLUENZA VACCINE (#1) 2024 7, 06/08/2014, 04/23/2013, Additional history exists OSTEOPOROSIS SCREENING 11/12/2028 4, 11/13/2023, 10/03/2022, Additional history exists Insurance MEDICARE RAILROAD MEDIC[place] [address] [address] [place] [id number] [place] [id number] MEDICARE Care Teams Christian Education Director Relationship Specialty Start Date End Date Fadi Turk MD [address] [place] [address] PCP - General Internal Medicine 02/21/23
--- OUTSIDE RECORDS SUMMARY | 2024-12-07 11:48 | XMS_ITS | Encounter Summary ---
Author Organization [facility] Address [address] [place] [address] Care Team Providers Care Lawn Mower Operator Name Role Phone Fadi Turk MD Primary Care Provider + Encounter Details Date Type Department Care Team (Latest Contact Info) Description 01/12/2009 Outpatient Historical HIS 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 Gender Identity Not on file Sexual Orientation [...] PM CDT Narrative 01/13/2009 1:38 PM CDT [address] [address] Admit Date: 01/12/2009 CAITLYNTAIMARIE DIANA Sex: F Admit Prov: SARA CHAPPELL Date: 1945 Primary Care Prov: BRIANNE GARCÍA CMRN: [id number] [facility]: [id number] IMAGING SERVICES Ordering Prov: SARA CHAPPELL Accession Number: [id number] Interpretation BILATERAL FULL FIELD DIGITAL SCREENING MAMMOGRAM [...] 1-Negative Recommendation: Normal interval follow-up Dictated by: NURY STAFFORD Electronically signed by: NURY STAFFORD 01/13/2009 13:36 Transcribed: 01/13/2009 08:41 AMK Procedure Note Nury Stafford - 01/13/[address] [address] Admit Date: 01/12/2009 DIANA ALEXANDER Sex: F Admit Prov: SARA CHAPPELL Date: 1945 Primary Care Prov: BRIANNE GARCÍA CMRN: [id number] Room: SANTAJerrell N: [id number] IMAGING SERVICES Ordering Prov: SARA CHAPPELL Interpretation [...] 1-Negative Recommendation: Normal interval follow-up Dictated by: NURY STAFFORD Electronically signed by: NURY STAFFORD 01/13/2009 13:36 Transcribed: 01/13/2009 08:41 AMK us Sara Chappell MD MAMMO ORDERABLES F inal Result documented in this encounter Visit Diagnoses Diagnosis Other screening mammogram documented in this encounter Care Teams Lawn Mower Operator Relationship Specialty Start Date End Date Fadi Turk MD [address] [place] [address] PCP - General Internal Medicine 02/21/23 documented as of this encounter
--- OUTSIDE RECORDS SUMMARY | 2024-12-07 11:48 | XMS_ITS | Encounter Summary ---
Author Organization [facility] Address [address] [place] [address] Care Team Providers Care Woven Blind Loom Tender Name Role Phone Fadi Turk MD Primary Care Provider + Encounter Details Date Type Department Care Team (Latest Contact Info) Description 06/30/2008 Outpatient Historical HIS [facility] Chappell, Sara Ames MD NO ADDRESS ON FILE Other Screening Mammogram Social History Tobacco Use Types Packs/Day Years Used Date Smoking Tobacco: Never Assessed Comments Unknown Sex and Gender Information Value Date Recorded Sex Assigned at Not on file Legal Sex Female 4:11 AM HELP DESK SPECIALIST Gender Identity Not on file Sexual Orientation Not on file documented as of this encounter Plan of Treatment Not on file documented as of this encounter Procedures Procedure Name Priority Date/Time Associated Diagnosis Comments MAMMO SCREEN BILAT W OR WO CAD Routine 06/30/2008 1:15 PM HELP DESK SPECIALIST documented in this encounter Results * MAMMO DIGITAL SCREEN BILAT (06/30/2008 1:15 PM HELP DESK SPECIALIST) Anatomical Region Laterality Modality Breast Bilateral Other 06/30/2008 1:15 PM HELP DESK SPECIALIST Narrative 07/01/2008 5:19 PM HELP DESK SPECIALIST [facility] [address] [place], [place] [address] Admit Date: 06/30/2008 IRINA DIANA Sex: F Admit Prov: SARA CHAPPELL Date: 1945 Primary Care Prov: BRIANNE GARCÍA CMRN: [id number] Room: FLORINA N: [id number] IMAGING SERVICES Ordering Prov: SARA CHAPPELL Accession Number: [id number] Interpretation BILATERAL SCREENING DIGITAL MAMMOGRAMS WITH COMPUTER [...] AMK Procedure Note Cecilia Ross - 07/01/2008 [facility] [address] [place], [place] [address] Admit Date: 06/30/2008 DIANA ALEXANDER Sex: F Admit Prov: SARA CHAPPELL Date: 1945 Primary Care Prov: BRIANNE GARCÍA CMRN: [id number] Room: [place] N: [id number] IMAGING SERVICES Ordering Prov: SARA CHAPPELL Interpretation [...] mammogram documented in this encounter Care Teams Woven Blind Loom Tender Relationship Specialty Start Date End Date Fadi Turk MD [address] [place] [address] PCP - General Internal Medicine 02/21/23 documented as of this encounter
--- OUTSIDE RECORDS SUMMARY | 2024-12-07 11:48 | XMS_ITS | Clinical Summary ---
Author Organization [facility] Address [address] [place] [address] Care Team Providers Care Enterprise Resource Planning Consultant Name Role Phone Marcelino Daley MD Primary Care Provider [phone] Allergies Active Allergy Reactions Criticality Noted Date [...] Encounters Date Type Department Care Team Description 11/05/2024 12:27 PM CDT - 11/05/2024 11:59 PM CDT Hospital Encounter [facility] Mammography [address] [place] [address] Marcelino Daley MD Discharge Disposition: Home or Self Care (Routine Discharge) 11/05/2024 Travel from Last 3 Months Family History Medical History Relation Comments Heart Disease Father Heart Disease Mother Colon Cancer Paternal Grandfather Breast Cancer Neg Hx Relation Status Comments Father Mother Alive Paternal [...] on file Legal Sex Female 8:18 AM MILLINERY COPYIST Gender Identity Not on file Sexual Orientation [...] 58.1 kg (128 lb) 07/31/2024 11:58 AM MILLINERY COPYIST Height 160 cm (5' 3 ) 03/27/2024 11:30 AM CDT Body Mass Index 22.67 03/27/2024 11:30 AM CDT Plan of Treatment Upcoming Encounters Date Type Department Care Team (Latest Contact Info) Description 02/25/2025 11:30 AM CDT Hospital Encounter [facility] [place] [place] [address] Nacho Campos MD 3 [facility] [address] [place] [address] 02/25/2025 11:30 AM CDT - 02/25/2025 12:[address] [facility] [place] [address] Nacho Campos MD 3 [facility] [address] [place] [address] COLONOSCOPY SCREENING Scheduled Procedures Name Priority Associated Diagnoses Date/Ti me COLONOSCOPY SCREENING Screening for colon cancer Family history of colon cancer 02/25/2025 11:30 AM CDT Health Maintenance Due Date Last Done Comments Hepatitis C 1963 Zoster Vaccines (1 of 2) 1995 Annual Medicare Wellness Visit 2010 Pneumococcal Vaccine: 50+ Years (2 of 2 - PCV) 04/27/2012 04/27/2011 RSV Immunization or 60+ Years (1 - 1-dose 75+ series) 2020 DTaP, Tdap and Td Vaccines (2 - Td or Tdap) 01/05/2023 01/05/2013 COVID-19 Vaccine ( - season) 2024 PHQ-2 (Physician [place]) 07/22/2024 03/27/2024 Dexa Scan (General) Completed 11/13/2023, 10/03/2022, 08/27/2018, Additional history exists Meningococcal B Vaccine Aged Out No l onger eligible based on patient's age to complete this topic Meningococcal Vaccine Aged Out No ginna too eligible based on patient's age to complete this topic RSV Immunizations Under 20 Months Aged Out No longer eligible based on patient's age to complete this topic Goals Goal Patient Goal Type Associated Problems Recent Progress Patient-Stated? Author Autogenerat ed Goal Care Plan Autogenerated Problem No Corry Anne radio news writer Procedure Name Priority Date/Time Associated Diagnosis Comments MG SCREENING W ROB JULIO DIGI Routine 11/05/2024 2:18 PM CDT Visit for screening mammogram from Last 3 Months Results * MG SCREENING W ROB JULIO DIGI (11/05/2024 2:18 PM CDT) Anatomical Region Laterality Modality Breast Bilateral Mammography 11/06/2024 12:2 5 PM CDT Impressions 11/06/2024 12:55 PM CDT ===== IMPRESSION: ===== 1. Stable mammographic appearance with no new findings to suggest malignancy in either breast. Assessment: ACR BI-RADS 1 - NEGATIVE Recommendation: 1:Routine Screening Bilateral Comments: Ordered By: MARCELINO DALEY Interpreted By: Luzmaria Miller, 11/06/2024 12:25 PM Narrative 11/06/2024 12:55 [place] [address] EXAMINATION: Digital bilateral screening mammogram with 3-D tomosynthesis EXAM DATE/TIME: 11/05/2024 12:31 PM REASON FOR EXAM: SCREENING COMPARISON: 09/06/2022. 11/04/2023 Technique: Digital screening mammography of both breasts was performed in addition to 3-D Tomosynthesis technique. This study was read with the assistance of a computer-aided detection system. Tissue density: The breasts are almost entirely fatty. Findings: There is no new focal asymmetry, dominant mass lesion, area of skin thickening, or cluster of suspicious appearing calcifications in either breast to suggest malignancy. Marcelino Daley MD MAMMO Final Result from Last 3 Months Additional Health Concerns Active Problems Noted Date Diagnosed Date Autogenerated Problem 11/04/2024 Insurance RAILROAD MEDICARE [facility] Care Teams Enterprise Resource Planning Consultant Relationship Specialty Start Date End Date Marcelino Daley MD [address] - [facility] [address] [place] [address] PCP - General INTERNAL MEDICINE 08/22/20
[2024-12-07 11:49] LABS: LDL Cholesterol Direct 57 mg/dL
[2024-12-07 12:08] LABS: Thyroid Stimulating Hormone 0.025 uIU/mL (0.465-4.680)
[2024-12-07 12:20] LABS: Free T4 Free Thyroxine 1.71 ng/dL (0.78-2.19); Vitamin D 25 Hydroxy 84.7 ng/mL
[2024-12-07 12:55] LABS: Folic Acid > 20.0 ng/mL (2.76->20)
== END 2024-12-07 11:07 | disposition home or self-care (01) ==
LOC: ANHLAB 11:11
PROVIDERS: PCP Internal Medicine; Visit Provider Internal Medicine
DX: D70.9 Neutropenia, unspecified (principal); E55.9 Vitamin D deficiency, unspecified; E53.8 Deficiency of other specified B group vitamins; E03.9 Hypothyroidism, unspecified; E78.00 Pure hypercholesterolemia, unspecified; Z79.899 Other long term (current) drug therapy
CPT/HCPCS: 36415; 80053; 80061; 82306; 82607; 82746; 84439; 84443; 85025

== ENCOUNTER 2025-01-04 09:45 | Outpatient (CLI) | payer MEDICARE, SELFPAY ==
--- OUTSIDE RECORDS SUMMARY | 2025-01-04 10:25 | XMS_ITS | Clinical Summary ---
Author Organization [facility] Aram Barclay Address [address] [place] [address] Care Team Providers Care Call Circuit Worker Name Role Phone Fadi Turk MD Primary [...] Encounters Date Type Department Care Team Description 12/10/2024 External Device Data STL ABSTRACTION Provider, Abstract 12/08/2024 External Device Data ST[facility] ABSTRACTION Provider, Abstract from Last 3 Months Family History Medical [...] on file Legal Sex Female 4:11 AM MEDICAL STAFFING COORDINATOR Gender Identity Not on file [...] P M CDT Height 161.9 cm (5' 3.75) 04/22/2023 1:33 PM CD T Body Mass [...] history exists Insurance MEDICARE RAILROAD MEDICARE RAILROAD [address] [id number] Member Subscriber Plan / Payer (Ef fective 2022-Present) Name:Diana Arevalo Relation to Subscriber:Self Name:Diana Arevalo Payer ID:[id number] (NAIC) Group ID:Not on file Type:Supplemental Address: [place] [id number] [place] [id number] MEDICARE Care Teams Call Circuit Worker Relationship Specialty Start Date End Date Fadi Turk MD [address] [place] [address] PCP - General Internal Medicine 02/21/23
--- OUTSIDE RECORDS SUMMARY | 2025-01-04 10:25 | XMS_ITS | Encounter Summary ---
Author Organization [facility] Address [address] [place] [address] Care Team Providers Care Flight Deck Officer Name Role Phone Fadi Turk MD Primary Care Provider + Encounter Details Date Type Department Care Team (Latest Contact Info) Description 06/23/2007 Outpatient Historical HIS [facility] Chappell, Sara Ames MD NO ADDRESS ON FILE Other Screening Mammogram Social History Tobacco Use Types Packs/Day Years Used Date Smoking Tobacco: Never Assessed Comments Unknown Sex and Gender Information Value Date Recorded Sex Assigned at Not on file Legal Sex Female 4:11 AM MAGAZINE SUPERVISOR Gender Identity Not on file Sexual Orientation Not on file documented as of this encounter Plan of Treatment Not on file documented as of this encounter Visit Diagnoses Diagnosis Other screening mammogram documented in this encounter Care Teams Flight Deck Officer Relationship Specialty Start Date End Date Fadi Turk MD [address] [place] [address] PCP - General Internal Medicine 02/21/23 documented as of this encounter
--- OUTSIDE RECORDS SUMMARY | 2025-01-04 10:25 | XMS_ITS | Encounter Summary ---
Author Organization [facility] Address [address] [place] [address] Care Team Providers Care Floor Covering Installer Name Role Phone Fadi Turk MD Primary Care Provider + Encounter Details Date Type Department Care Team (Latest Contact Info) Description 01/12/2009 Outpatient Historical HIS [facility] Sara Portillo MD NO ADDRESS ON FILE Other Screening Mammogram Social History Tobacco Use Types Packs/Day Years Used Date Smoking Tobacco: Never Assessed Comments Unknown Sex and Gender Information Value Date Recorded Sex Assigned at Not on file Legal Sex Female 4:11 AM OPTOMETRIST Gender Identity Not on file Sexual Orientation [...] PM CDT Narrative 01/13/2009 1:38 PM CDT [address] [address] Admit Date: 01/12/2009 ALCIRATAIMAIKOLCINTIAELENI Sex: F Admit Prov: SARA CHAPPELL Date: 1945 Primary Care Prov: BRIANNE GARCÍA CMRN: [id number] [facility]: [id number] IMAGING SERVICES Ordering Prov: SARA CHAPPELL Accession Number: [id number] Interpretation BILATERAL FULL FIELD DIGITAL SCREENING MAMMOGRAM [...] AMK Procedure Note Dania Stafford - 01/13/[address] [address] Admit Date: 01/12/2009 ELENI ALEXANDER Sex: F Admit Prov: SARA CHAPPELL Date: 1945 Primary Care Prov: BRIANNE GARCÍA CMRN: [id number] Room: [facility]rell N: [id number] IMAGING SERVICES Ordering Prov: SARA CHAPPELL Interpretation [...] mammogram documented in this encounter Care Teams Floor Covering Installer Relationship Specialty Start Date End Date Fadi Turk MD [address] [place] [address] PCP - General Internal Medicine 02/21/23 documented as of this encounter
--- OUTSIDE RECORDS SUMMARY | 2025-01-04 10:25 | XMS_ITS | Encounter Summary ---
Author Organization [facility] Address 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
--- OUTSIDE RECORDS SUMMARY | 2025-01-04 10:25 | XMS_ITS | Encounter Summary ---
Author Organization [facility] Address 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 [address] [place], [place] [address] Admit Date: 06/30/2008 CAITLYNTAIMARIE DIANA Sex: F Admit Prov: SARA CHAPPELL Date: 1945 Primary Care Prov: BRIANNE GARCÍA CMRN: [id number] Room: [place] N: [id number] IMAGING SERVICES Ordering Prov: SARA CHAPPELL Accession Number: [id number] Interpretation BILATERAL SCREENING DIGITAL MAMMOGRAMS WITH COMPUTER [...] AMK Procedure Note Cecilia Ross - 07/01/2008 [facility] [address] [place], [place] [address] Admit Date: 06/30/2008 DIANA ALEXANDER Sex: F Admit Prov: SARA CHAPPELL Date: 1945 Primary Care Prov: BRIANNE GARCÍA CMRN: [id number] Room: [place] N: [id number] IMAGING SERVICES Ordering Prov: SARA CHAPPELL Interpretation [...] mammogram documented in this encounter Care Teams Laboratory Helper Relationship Specialty Start Date End Date Fadi Turk MD [address] [place] [phone] PCP - General Internal Medicine 02/21/23 documented as of this encounter
--- OUTSIDE RECORDS SUMMARY | 2025-01-04 10:25 | XMS_ITS | Encounter Summary ---
Author Organization [facility] Address 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
[2025-01-04 10:58] LABS: Free T4 Free Thyroxine 1.51 ng/dL (0.78-2.19)
[2025-01-04 11:37] LABS: Thyroid Stimulating Hormone 0.069 uIU/mL (0.465-4.680)
== END 2025-01-04 09:46 | disposition home or self-care (01) ==
PROVIDERS: PCP Internal Medicine; Visit Provider Internal Medicine
DX: E03.9 Hypothyroidism, unspecified (principal); Z79.899 Other long term (current) drug therapy
CPT/HCPCS: 36415; 84439; 84443

== ENCOUNTER 2025-04-24 11:03 | Outpatient (CLI) | payer MEDICARE, SELFPAY ==
--- OUTSIDE RECORDS SUMMARY | 2025-04-24 11:06 | XMS_ITS | Encounter Summary ---
Author Organization [facility] Address 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 Gender Identity Not on file Sexual Orientation Not on file documented as of this encounter Plan of Treatment Not on file documented as of this encounter Procedures Procedure Name Priority Date/Time Associated Diagnosis Comments MAMMO SCREEN BILAT W OR WO CAD Routine 06/30/2008 1:15 PM BINDERY MACHINE OPERATOR documented in this encounter Results * MAMMO DIGITAL SCREEN BILAT (06/30/2008 1:15 PM BINDERY MACHINE OPERATOR) Anatomical Region Laterality Modality Breast Bilateral Other 06/30/2008 1:15 PM BINDERY MACHINE OPERATOR Narrative 07/01/2008 5:19 PM BINDERY MACHINE OPERATOR [facility] [address] [place], [place] [address] Admit Date: 06/30/2008 CAITLYNTAIMARIE DIANA Sex: F Admit Prov: SARA CHAPPELL Date: 1945 Primary Care Prov: BRIANNE GARCÍA CMRN: [id number] Room: [place] N: [id number] IMAGING SERVICES Ordering Prov: SARA CHAPPELL Accession Number: [id number] Interpretation BILATERAL SCREENING DIGITAL MAMMOGRAMS WITH COMPUTER [...] AMK Procedure Note Cecilia Ross - 07/01/2008 [facility] [address] [place], [place] [address] Admit Date: 06/30/2008 DIANA ALEXANDER Sex: F Admit Prov: SARA CHAPPELL Date: 1945 Primary Care Prov: BRIANNE GARCÍA CMRN: [id number] Room: [place] N: [id number] IMAGING SERVICES Ordering Prov: SARA CHAPPELL Interpretation [...] mammogram documented in this encounter Care Teams Piano Regulator Relationship Specialty Start Date End Date Fadi Turk MD [address] [place] [phone] PCP - General Internal Medicine 02/21/23 documented as of this encounter
--- OUTSIDE RECORDS SUMMARY | 2025-04-24 11:06 | XMS_ITS | Encounter Summary ---
Author Organization [facility] Address 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
--- OUTSIDE RECORDS SUMMARY | 2025-04-24 11:06 | XMS_ITS | Clinical Summary ---
Author Organization [facility] Address [address] [place] [address] Care Team Providers Care Manufacturing Scheduler Name Role Phone Fadi Turk MD Primary Care Provider [phone] Allergies Active Allergy Reactions Criticality Noted Date [...] Date Resolved Date Screening for colon cancer 08/11/2024 0 02/15/2025 Screening for colon cancer 03/27/2024 0 03/30/2024 Screening for colon cancer 03/27/2024 0 08/17/2024 Encounters Date Type Department Care Team Description 02/18/2025 Telephone [facility] - [facility] [address] [facility] [place] [address] Nacho Campos MD Called To Cancel Office Appt. from Last 3 Months Family History Medical [...] on file Legal Sex Female 8:18 AM MINING ANALYST Gender Identity Not on file Sexual Orientation [...] 58.1 kg (128 lb) 07/31/2024 11:58 AM MINING ANALYST Height 160 cm (5' 3) 03/27/2024 11:30 AM CDT Body Mass Index 22.67 03/27/2024 11:30 AM CDT Plan of Treatment Health Maintenance Due Date Last Done Comments Zoster Vaccines (1 of 2) 1995 Annual Medicare Wellness Visit 2010 Pneumococcal Vaccine: 50+ Years (2 of 2 - PCV) 04/27/2012 04/27/2011 RSV Immunization or 60+ Years (1 - 1-dose 75+ series) 2020 DTaP, Tdap and Td Vaccines (2 - Td or Tdap) 01/05/2023 01/05/2013 PHQ-2 (Physician [place]) 07/22/2024 03/27/2024 COVID-19 Vaccine (1 - season) 2025 Dexa Scan (General) Completed 11/13/2023, 10/03/2022, 08/27/2018, [...] to complete this topic Insurance RAILROAD MEDICARE [facility] Care Teams Manufacturing Scheduler Relationship Specialty Start Date End Date Fadi Turk MD [address] [place] [address] PCP - General INTERNAL MEDICINE 08/22/20
--- OUTSIDE RECORDS SUMMARY | 2025-04-24 11:06 | XMS_ITS | Patient Health Record ---
Author Organization [facility] Address [address] [place] [address] Support Name Relationship Address Phone Parish Raza Guarantor Unknown Reason For Referral No Information Medications Medication SIG (Take, Route, Frequency, Duration) Notes Start Date End Date Status Simvastatin 10 MG 1 po q day Oral 01/25/2008 Active ALPRAZolam 0.5 MG 1 Three Times A Day Oral 007 Active Synthroid 50 MCG TAKE 1 TABLET BY ARABELLA TH EVERY OTHER DAY ALTERNATING WITH 75MCG Oral 09/09/2014 Active Imitrex 50 MG 1 po prn headache; repeat in 1 hour if necessary Oral 12/13/2005 Active Pen Hendrum one daily 05/16/2007 Active Prolia 60 MG/ML inject 1 milliliter (60 mg) by subcutaneous route every 6 months in the upper arm, upper thigh or abdomen for 90 days Subcutaneous [id number]-[id number]; Duration: 90 Active Synthroid 75 MCG TAKE 1 TABLET BY ARABELLA TH ONE TIME EVERY OTHER DAY ALTERNATING WITH 50MCG Oral 09/09/2014 Active Pantoprazole Sodium 40 MG take 1 tablet (40 mg) by oral route once daily for 90 days Oral 1; Duration: 90 Active Cholecalciferol 50 MCG (1999 UT) take 1 capsule two times a week Oral; Duration: 30 Active Immunizations Vaccine Route Administration Date Status Comme nts Infuenza, trivalent, recombinant, preservative free Unknown 05/16/2007 Administered migrated LegPa tid= [id number] Date=05/14/2001 Vac= Influenza Problems Problem Type SNOMED Code ICD Code Onset Dates Problem Status W/U Status Risk Notes Problem 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, 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 Problem Vitamin D deficiency (89464853) Vitamin D deficiency, unspecified (E55.9) 2012 Active confirmed Problem Pure hypercholesterolemia (047593369) Pure hypercholesterolemia (E78.0) 2004 Active confirmed Problem Postoperative Hypothyroidism (73134110) Postprocedural hypothyroidism (E89.0) 2004 Active confirmed Problem Age-related osteoporosis (677662707) Age-related osteoporosis without current pathological fracture (M81.0) 2006 Active confirmed Problem Fatigue (70375243) Other fatigue (R53.83) 2012 Active confirmed Plan Of Treatment No Information Insurance Providers Payer Name Payer Address Payer Phone Subscriber Number Group Number Insured Name Patient Relationship to Insured Coverage Start Date Coverage End Date [facility] [address] [place] [address] [id number] Parish Sotoam Self - patient is the insured 2 [employer] [place] [address] [place] [address] [id number] Parish Soto Self - patient is the insured 1 DO NOT USE [id number] Parish Cochran Self - patient is the insured 2
--- OUTSIDE RECORDS SUMMARY | 2025-04-24 11:06 | XMS_ITS | Encounter Summary ---
Author Organization [facility] Address [address] [place] [address] Care Team Providers Care Pulp Refiner Operator Name Role Phone Fadi Turk MD Primary Care Provider + Encounter Details Date Type Department Care Team (Latest Contact Info) Description 11/03/2004 Outpatient Historical HIS [facility] Chappell, Sara Ames MD NO ADDRESS ON FILE SCREENING MAMM-MAILG NEOPL-OTHER (Primary Dx) Social History Tobacco Use Types Packs/Day Years Used Date Smoking Tobacco: Never Assessed Comments Unknown Sex and Gender Information Value Date Recorded Sex Assigned at Not on file Legal Sex Female 4:11 AM OFFICE PROFESSIONALS Gender Identity Not on file Sexual Orientation Not on file documented as of this encounter Plan of Treatment Not on file documented as of this encounter Visit Diagnoses Diagnosis Other screening mammogram- Primary documented in this encounter Care Teams Pulp Refiner Operator Relationship Specialty Start Date End Date Fadi Turk MD [address] [place] [address] PCP - General Internal Medicine 02/21/23 documented as of this encounter
--- OUTSIDE RECORDS SUMMARY | 2025-04-24 11:06 | XMS_ITS | Clinical Summary ---
Author Organization [facility]am [facility]cl[facility] Address [address] [place] [address] Care Team Providers Care Subscription Clerk Name Role Phone Fadi Turk MD Primary [...] Encounters Date Type Department Care Team Description 03/09/2025 External Device Data STL ABSTRACTION Provider, Abstract 02/24/2025 External Device Data [facility] ABSTRACTION Provider, Abstract 02/03/2025 External Device Data [facility] ABSTRACTION Provider, Abstract 02/03/2025 External Device Data [facility] ABSTRACTION Provider, Abstract 02/03/2025 External Device Data ST[facility] ABSTRACTION Provider, Abstract 02/02/2025 External Device Data [facility] ABSTRACTION Provider, Abstract [...] on file Legal Sex Female 4:11 AM SAP ANALYST Gender Identity Not on file Sexual [...] or Tdap) 01/05/2023 01/05/2013 INFLUENZA VACCINE (#1) 2025 7, 06/08/2014, 04/23/2013, Additional history exists OSTEOPOROSIS SCREENING 11/25/2029 , 11/13/2023, 11/13/2023, Additional history exists Insurance MEDICARE RAILROAD MEDICARE RAILROAD MEDICARE Care Teams Subscription Clerk Relationship Specialty Start Date End Date Fadi Turk MD [address] [place] [address] PCP - General Internal Medicine 02/21/23
--- OUTSIDE RECORDS SUMMARY | 2025-04-24 11:06 | XMS_ITS | Encounter Summary ---
Author Organization [facility] Address 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
--- OUTSIDE RECORDS SUMMARY | 2025-04-24 11:06 | XMS_ITS | Encounter Summary ---
Author Organization [facility] Address 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 WORKER Gender Identity Not on file Sexual Orientation [...] PM CDT Narrative 01/13/2009 1:38 PM CDT [address] [address] Admit Date: 01/12/2009 ALCIRATAIMAIKOLNICKYELENI Sex: F Admit Prov: SARA CHAPPELL Date: 1945 Primary Care Prov: BRIANNE GARCÍA CMRN: [id number] [facility]: [id number] IMAGING SERVICES Ordering Prov: SARA CHAPPELL Accession Number: [id number] Interpretation BILATERAL FULL FIELD DIGITAL SCREENING MAMMOGRAM [...] AMK Procedure Note Dania Stafford - 01/13/[address] [address] Admit Date: 01/12/2009 ELENI ALEXANDER Sex: F Admit Prov: SARA CHAPPELL Date: 1945 Primary Care Prov: BRIANNE GARCÍA CMRN: [id number] Room: SANT[facility]rell N: [id number] IMAGING SERVICES Ordering Prov: SARA CHAPPELL Interpretation [...] mammogram documented in this encounter Care Teams Cinema Or Theatre Manager Relationship Specialty Start Date End Date Fadi Turk MD [address] [place] [address] PCP - General Internal Medicine 02/21/23 documented as of this encounter
[2025-04-24 11:30] LABS: Hematocrit 35.8 % (37.0-47.0); Hemoglobin 12.3 g/dL (12.0-15.0); Immature Granulocyte Percent A 0.3 % (0-0.5); Lymphocytes Absolute Auto 1.18 K/mm3 (0.9-3.2); Mean Corpuscular HGB Conc 34.4 g/dl (32-36); Mean Corpuscular Hemoglobin 30.5 pg (26-34); Mean Corpuscular Volume 88.8 fl (80-100); Nucleated Red Blood Cells Absolute Auto 0.000 K/mm3 (0.0-0.012); Nucleated Red Blood Cells Perc 0.0 % (0.0-0.2); Platelet Count Result 186 k/mm3 (150-375); Red Blood Count 4.03 M/mm3 (4.2-5.4); White Blood Count 3.6 K/mm3 (4.5-10.0)
[2025-04-24 11:35] LABS: Hemoglobin A1C 5.2 % (<5.7)
[2025-04-24 11:41] LABS: Alanine Aminotransferase 17 U/L (6-35); Albumin Level 4.1 g/dL (3.5-5.1); Alkaline Phosphatase 53 U/L (38-126); Anion Gap 4 mmol/L (4-12); Aspartate Amino Transferase 30 U/L (14-36); Bilirubin,Total 0.6 mg/dL (0.2-1.3); Blood Urea Nitrogen 14 mg/dL (7-17); Calcium 9.2 mg/dL (8.4-10.2); Carbon Dioxide 31 mmol/L (22-30); Chloride 95 mmol/L (98-107); Cholesterol 160 mg/dL (0-200); Estimated Glomerular Filt Rate 59; Glucose 98 mg/dL (65-110); HDL Direct 60 mg/dL; Potassium 5.0 mmol/L (3.4-5.0); Sodium 130 mmol/L (137-145); Total Protein 7.0 g/dL (6.3-8.2); Triglycerides 98 mg/dL (<150)
[2025-04-24 12:01] LABS: Free T4 Free Thyroxine 1.44 ng/dL (0.78-2.19)
[2025-04-24 12:12] LABS: Thyroid Stimulating Hormone 0.098 uIU/mL (0.465-4.680)
== END 2025-04-24 11:04 | disposition home or self-care (01) ==
PROVIDERS: PCP Internal Medicine; Visit Provider Internal Medicine
DX: Z13.1 Encounter for screening for diabetes mellitus (principal); E03.9 Hypothyroidism, unspecified; E78.00 Pure hypercholesterolemia, unspecified; Z79.899 Other long term (current) drug therapy
CPT/HCPCS: 36415; 80053; 80061; 83036; 84439; 84443; 85025